=== PATIENT | male | born 1930 | race Caucasian/White ===

== ENCOUNTER 2021-11-19 10:44 | Inpatient (IN) | payer MEDICARE ==
[~2021-11-19] VITALS: Ht 195 cm; Wt 84.9 kg
--- NOTE | 2021-11-19 10:47 | ED General ---
General Stated Complaint: DIZZY History of Present Illness Date Seen by Provider: Nov 19, 2021 Time Seen by Provider: 10:47 Initial Comments 89-year-old male presents with dizziness, weakness that is generalized, dry mouth. Reports that symptoms started yesterday and he just feels really weak. He denies any recent illness. No chest pain, shortness of breath, fever, chills or urinary symptoms are reported. Patient reports that he is having difficulty even getting up and standing up to the generalized weakness. He does feel like he is falling a little bit to the right when he tries to stand up. Patient reports no new medications or medication changes. Allergies and Home Medications Allergies Coded Allergies: No Known Drug Allergies (Unverified , 11/19/21) Patient Home Medication List Home Medication List Reviewed: Yes Review of Systems Review of Systems Constitutional: dizziness, weakness EENTM: no symptoms reported Respiratory: No cough, No short of breath Musculoskeletal: see HPI Skin: no symptoms reported Psychiatric/Neurological: No Symptoms Reported, Weakness Hematologic/Lymphatic: No Symptoms Reported Immunological/Allergic: no symptoms reported Physical Exam Vital Signs Vital Signs - First Documented 11/19/21 11/19/21 10:44 15:23 Temp 37.6 Pulse 134 Resp 17 B/P (MAP) 99/78 (85) Pulse Ox 95 O2 Delivery Room Air Capillary Refill : Height, Weight, BMI Height: '" Weight: lbs. oz. kg; BMI Method: General Appearance: No Apparent Distress, Cachetic, Thin HEENT: PERRL/EOMI Respiratory: Lungs Clear, Normal Breath Sounds Cardiovascular: No Edema, Tachycardia Extremity: Normal Capillary Refill, Other (Generalized weakness) Neurologic/Psychiatric: Alert, Oriented x3, Other (Generalized weakness) Skin: Jaundice (mild) Progress/Results/Core Measures Suspected Sepsis SIRS Temperature: Pulse: Respiratory Rate: Laboratory Tests 11/19/21 10:45: White Blood Count 7.0 Blood Pressure / Mean: Laboratory Tests 11/19/21 10:45: Creatinine 0.96, Platelet Count 118L, Total Bilirubin 5.5H Results/Orders Lab Results Laboratory Tests Test 11/19/21 10:45 11/19/21 11:06 11/19/21 11:33 11/19/21 11:37 Range/Units White Blood Count 7.0 4.3-11.0 10^3/uL Red Blood Count 4.47 4.30-5.52 10^6/uL Hemoglobin 14.1 13.3-17.7 g/dL Hematocrit 39 L 40-54 % Mean Corpuscular Volume 88 80-99 fL Mean Corpuscular Hemoglobin 32 25-34 pg Mean Corpuscular Hemoglobin Concent 36 32-36 g/dL Red Cell Distribution Width 13.2 10.0-14.5 % Platelet Count 118 L 130-400 10^3/uL Mean Platelet Volume 10.3 9.0-12.2 fL Immature Granulocyte % (Auto) 0 % Neutrophils (%) (Auto) 97 H 42-75 % Lymphocytes (%) (Auto) 2 L 12-44 % Monocytes (%) (Auto) 1 0-12 % Eosinophils (%) (Auto) 0 0-10 % Basophils (%) (Auto) 0 0-10 % Neutrophils # (Auto) 6.7 1.8-7.8 X 10^3 Lymphocytes # (Auto) 0.2 L 1.0-4.0 X 10^3 Monocytes # (Auto) 0.1 0.0-1.0 X 10^3 Eosinophils # (Auto) 0.0 0.0-0.3 10^3/uL Basophils # (Auto) 0.0 0.0-0.1 10^3/uL Immature Granulocyte # (Auto) 0.0 0.0-0.1 10^3/uL Neutrophils % (Manual) 96 % Lymphocytes % (Manual) 3 % Monocytes % (Manual) 1 % Percent Immature Platelet Fraction 0.0-7.6 % Sodium Level 133 L 135-145 MMOL/L Potassium Level 3.7 3.6-5.0 MMOL/L Chloride Level 99 98-107 MMOL/L Carbon Dioxide Level 17 L 21-32 MMOL/L Anion Gap 17 H 5-14 MMOL/L Blood Urea Nitrogen 16 7-18 MG/DL Creatinine 0.96 0.60-1.30 MG/DL Estimat Glomerular Filtration Rate 76 BUN/Creatinine Ratio 17 Glucose Level 126 H 70-105 MG/DL Calcium Level 8.9 8.5-10.1 MG/DL Corrected Calcium 9.0 8.5-10.1 MG/DL Magnesium Level 1.6 1.6-2.4 MG/DL Total Bilirubin 5.5 H 0.1-1.0 MG/DL Aspartate Amino Transf (AST/SGOT) 465 H 5-34 U/L Alanine Aminotransferase (ALT/SGPT) 338 H 0-55 U/L Alkaline Phosphatase 648 H 40-136 U/L Troponin I < 0.30 <0.30 NG/ML C-Reactive Protein 3.32 H <0.50 MG/DL Total Protein 6.5 6.4-8.2 GM/DL Albumin 3.9 3.2-4.5 GM/DL Lipase 2479 H 8-78 U/L Urine Color YELLOW Urine Clarity CLEAR Urine pH 6.0 5-9 Urine Specific Pingree 1.025 H 1.016-1.022 Urine Protein NEGATIVE NEGATIVE Urine Glucose (UA) NEGATIVE NEGATIVE Urine Ketones NEGATIVE NEGATIVE Urine Nitrite NEGATIVE NEGATIVE Urine Bilirubin 2+ H NEGATIVE Urine Urobilinogen 1.0 < = 1.0 MG/DL Urine Leukocyte Esterase NEGATIVE NEGATIVE Urine RBC (Auto) TRACE-I H NEGATIVE Urine RBC NONE /HPF Urine WBC NONE /HPF Urine Squamous Epithelial Cells 2-5 /HPF Urine Crystals NONE /LPF Urine Bacteria TRACE /HPF Urine Casts NONE /LPF Urine Mucus SMALL H /LPF Urine Culture Indicated NO Influenza Type A Antigen NEGATIVE NEGATIVE Influenza Type B Antigen POSITIVE H NEGATIVE SARS-CoV-2 RNA (RT-PCR) Not Detected Not Detecte Glucometer 105 70-110 MG/DL My Orders Orders - MERRITT,SRI L DO Cbc With Automated Diff (11/19/21 10:48) Comprehensive Metabolic Panel (11/19/21 10:48) Magnesium (11/19/21 10:48) Ua Culture If Indicated (11/19/21 10:48) Crp Fs (11/19/21 10:48) Troponin I Fs (11/19/21 10:48) Influenza A & B Antigens (11/19/21 10:48) Covid 19 Inhouse Test (11/19/21 10:48) Accucheck Stat ONCE (11/19/21 10:48) Ekg Tracing (11/19/21 10:48) Monitor-Rhythm Ecg Trace Only (11/19/21 10:48) Ct Head Wo (11/19/21 10:48) Ns Iv 1000 Ml (Sodium Chloride 0.9%) (11/19/21 10:48) Chest 1 View Ap/Pa Only (11/19/21 10:48) Manual Differential (11/19/21 10:45) Lipase (11/19/21 11:37) Ct Abdomen/Pelvis W (11/19/21 11:39) Iohexol Injection (Omnipaque 350 Mg/Ml 1 (11/19/21 11:45) Received Contrast (Hold Metformin- Contr (11/19/21 11:45) Sodium Chloride Flush (Catheter Flush Sy (11/19/21 11:45) Ns (Ivpb) (Sodium Chloride 0.9% Ivpb Bag (11/19/21 11:45) Iohexol Injection (Omnipaque 350 Mg/Ml 1 (11/19/21 12:15) Received Contrast (Hold Metformin- Contr (11/19/21 12:15) Metoprolol Tartrate Injection (Lopressor (11/19/21 13:45) Ed Admission (Communication) (11/19/21 13:43) Lactated Ringers (Lr 1000 Ml Iv Solution (11/19/21 14:19) Medications Given in ED Current Medications Medications Dose Ordered Sig/Vandana Route Start Time Stop Time Status Last Admin Dose Admin Iohexol 100 ml ONCE ONCE IV 11/19/21 12:15 11/19/21 12:16 DC 11/19/21 12:07 100 ML Metoprolol Tartrate 5 mg ONCE ONCE IV 11/19/21 13:45 11/19/21 13:46 DC 11/19/21 13:50 5 MG Sodium Chloride 10 ml NEEDED PRN IV 11/19/21 11:45 11/19/21 12:04 10 ML Sodium Chloride 100 ml ONCE ONCE IV 11/19/21 11:45 11/19/21 11:46 DC 11/19/21 12:04 100 ML Vital Signs/I&O 11/19/21 11/19/21 10:44 15:23 Temp 37.6 Pulse 134 101 Resp 17 16 B/P (MAP) 99/78 (85) 129/78 Pulse Ox 95 O2 Delivery Room Air Room Air Capillary Refill : Progress Note : Progress Note Patient's weakness likely combination of influenza B along with an incidental finding of gallstone pancreatitis. Patient to be admitted to Dr. Brown [facility]. I did call and discuss also with Dr. Collier who will consult. Patient stable and transferred to [place] [facility] via EMS ECG Initial ECG Impression Date: Nov 19, 2021 Initial ECG Impression Time: 11:27 Initial ECG Rate: 125 Initial ECG Impression: Nonspecific Changes Comment atrial fib, non specific changes, no acute findings. Diagnostic Imaging Diagonstic Imaging: CT Plain Films/CT/US/NM/MRI: abdomen Comments PROCEDURE: CT abdomen and pelvis with contrast. TECHNIQUE: Multiple contiguous axial images were obtained through the abdomen and pelvis after administration of intravenous contrast. Auto Exposure Controls were utilized during the CT exam to meet ALARA standards for radiation dose reduction. All CT scans use one or more of the following dose optimizing techniques: automated exposure control, MA and/or KvP adjustment based on patient size and exam type or iterative reconstruction. INDICATION: Elevated bilirubin. COMPARISON: I have no previous. FINDINGS: The liver is mildly enlarged at 21 cm cephalocaudal. The gallbladder is distended with multiple large calculi. The gallbladder wall shows some suggestion of mild thickening. While not confirmed, the pattern raises the question of acute cholecystitis but that clinical diagnosis would be in doubt. Gallbladder ultrasound versus a nuclear medicine hepatobiliary scanning may provide additional utility. No radiopaque common duct stone is found. The pancreas and its duct are unremarkable. Spleen and adrenals are negative. The kidneys are unobstructed. There is no ileus or bowel obstruction. There are noninflamed diverticula of the sigmoid colon. There are fatty left greater than right inguinal hernias, noninflamed. The urinary bladder is unremarkable. There is no abdominopelvic mesenteric or retroperitoneal lymphadenopathy. The lung bases and basilar pleura are nonacute. IMPRESSION: 1. Cholelithiasis with mild prominence of the gallbladder and its wall, cholecystitis could not be excluded but that diagnosis could not be confirmed at this study and clinical correlation recommended. As indicated, gallbladder ultrasound may provide additional utility. 2. No intra or extrahepatic bile duct dilatation and no radiopaque choledocholithiases. Nonacute and nonfocal pancreas. 3. Noninflamed diverticulosis, fatty inguinal hernias. No other acute findings. Diagonstic Imaging: CT Plain Films/CT/US/NM/MRI: head Comments CT HEAD WO PROCEDURE: CT head without contrast. TECHNIQUE: Multiple contiguous axial images were obtained through the brain without the use of intravenous contrast. Auto Exposure Controls were utilized during the CT exam to meet ALARA standards for radiation dose reduction. INDICATION: Weakness. COMPARISON: No relevant comparison. FINDINGS: Cerebral cortical volume is unremarkable given age. There is no hydrocephalus. There are intracranial atherosclerotic vascular calcifications, chronic. There are very mild periventricular white matter hypodensities as an expected finding given the age of this patient and the burden of white matter small vessel disease is very slight. No findings of cortical edema. No evidence for elevated pressures. There is no mass or mass effect. There are no findings of hemorrhage. Orbits, sinuses, and calvarium appeared nonacute. IMPRESSION: Very mild senescent changes. No hemorrhage, edema, acute or suspicious abnormalities. Diagonstic Imaging: Xray Plain Films/CT/US/NM/MRI: chest Comments CHEST 1 VIEW AP/PA ONLY HISTORY: Weakness, fever TECHNIQUE: Frontal view the chest COMPARISON: None FINDINGS: Lung volumes are normal. No consolidation is seen. There is no pleural effusion or pneumothorax. The cardiac silhouette is normal in size. There is calcified granuloma in the left lung. IMPRESSION: 1. No acute pulmonary abnormality is seen. Departure Impression Primary Impression: Influenza B Additional Impressions: Cholelithiasis Qualified Codes: K80.20 - Calculus of gallbladder without cholecystitis without obstruction Pancreatitis, gallstone Disposition: 30 STILL A PATIENT Condition: Stable Admissions Decision to Admit Reason: Admit from ER (General) Decision to Admit/Date: Nov 19, 2021 Time/Decision to Admit Time: 13:42 SRI MERRITT DO Nov 19, 2021 10:47
[2021-11-19] MEDS ORDERED: NS IV 1000 ML 1,000 ML IV STA (10:48)
[2021-11-19 10:54] LABS: HEMATOCRIT 39 % (40-54); HEMOGLOBIN 14.1 g/dL (13.3-17.7); MEAN CORPUSCULAR HEMOGLOBIN 32 pg (25-34); MEAN CORPUSCULAR HGB CONC 36 g/dL (32-36); MEAN CORPUSCULAR VOLUME 88 fL (80-99); MEAN PLATELET VOLUME 10.3 fL (9.0-12.2); NEUTROPHILS % (AUTO) 97 % (42-75); PLATELET COUNT 118 10^3/uL (130-400)
[2021-11-19 10:55] LABS: BASOPHILS % (AUTO) 0 % (0-10); EOSINOPHILS % (AUTO) 0 % (0-10); LYMPHOCYTES # (AUTO) 0.2 X 10^3 (1.0-4.0); LYMPHOCYTES % (AUTO) 2 % (12-44); MONOCYTES # (AUTO) 0.1 X 10^3 (0.0-1.0); MONOCYTES % (AUTO) 1 % (0-12); NEUTROPHILS # (AUTO) 6.7 X 10^3 (1.8-7.8)
[2021-11-19 11:11] LABS: CLARITY,URINE CLEAR; COLOR,URINE YELLOW; GLUCOSE, URINE (UA) NEGATIVE (NEGATIVE); KETONES,URINE NEGATIVE (NEGATIVE); LEUKOCYTE ESTERASE ,URINE NEGATIVE (NEGATIVE); NITRITE,URINE NEGATIVE (NEGATIVE); PROTEIN,URINE NEGATIVE (NEGATIVE)
[2021-11-19 11:17] LABS: ALANINE AMINOTRANSFERASE 338 U/L (0-55); ALBUMIN 3.9 GM/DL (3.2-4.5); ALKALINE PHOSPHATASE 648 U/L (40-136); BILIRUBIN,TOTAL 5.5 MG/DL (0.1-1.0); BUN/CREATININE RATIO 17; CALCIUM 8.9 MG/DL (8.5-10.1); CARBON DIOXIDE 17 MMOL/L (21-32); CHLORIDE 99 MMOL/L (98-107); CREATININE SERUM 0.96 MG/DL (0.60-1.30); GFR ESTIMATED 76; GLUCOSE 126 MG/DL (70-105); MAGNESIUM 1.6 MG/DL (1.6-2.4); POTASSIUM 3.7 MMOL/L (3.6-5.0); SODIUM 133 MMOL/L (135-145); TOTAL PROTEIN 6.5 GM/DL (6.4-8.2)
[2021-11-19 11:19] LABS: BACTERIA,URINE TRACE /HPF; BILIRUBIN,URINE 2+ (NEGATIVE)
--- NOTE | 2021-11-19 11:19 | Diagnostic Imaging Report ---
PROCEDURE: CT head without contrast. TECHNIQUE: Multiple contiguous axial images were obtained through the brain without the use of intravenous contrast. Auto Exposure Controls were utilized during the CT exam to meet ALARA standards for radiation dose reduction. INDICATION: Weakness. COMPARISON: No relevant comparison. FINDINGS: Cerebral cortical volume is unremarkable given age. There is no hydrocephalus. There are intracranial atherosclerotic vascular calcifications, chronic. There are very mild periventricular white matter hypodensities as an expected finding given the age of this patient and the burden of white matter small vessel disease is very slight. No findings of cortical edema. No evidence for elevated pressures. There is no mass or mass effect. There are no findings of hemorrhage. Orbits, sinuses, and calvarium appeared nonacute. IMPRESSION: Very mild senescent changes. No hemorrhage, edema, acute or suspicious abnormalities. Dictated by: Dictated on workstation # [id number]
[2021-11-19 11:26] LABS: LYMPHOCYTES % (MANUAL) 3 %; MONOCYTES % (MANUAL) 1 %; NEUTROPHILS % (MANUAL) 96 %
[2021-11-19] MEDS ORDERED: HOLD METFORMIN - RECEIVED CONTRAST 20 ML VIAL IV SCH ×2 (11:45→12:15)
[2021-11-19] MEDS ORDERED: IOHEXOL 350 MG/ML 100 ML (OMNIPAQUE 350) VIAL IV ONE (11:45)
[2021-11-19] MEDS ORDERED: NS 100 ML (IVPB) BAG IV ONE (11:45)
--- NOTE | 2021-11-19 11:49 | Diagnostic Imaging Report ---
HISTORY: Weakness, fever TECHNIQUE: Frontal view the chest COMPARISON: None FINDINGS: Lung volumes are normal. No consolidation is seen. There is no pleural effusion or pneumothorax. The cardiac silhouette is normal in size. There is calcified granuloma in the left lung. IMPRESSION: 1. No acute pulmonary abnormality is seen. Dictated by: Dictated on workstation # [id number]
[2021-11-19] MEDS: CATHETER FLUSH 10 ML SYR IV PRN (12:04)
[2021-11-19] MEDS ORDERED: IOHEXOL 350 MG/ML 150 ML (OMNIPAQUE 350) VIAL IV ONE (12:15)
--- NOTE | 2021-11-19 12:32 | Diagnostic Imaging Report ---
PROCEDURE: CT abdomen and pelvis with contrast. TECHNIQUE: Multiple contiguous axial images were obtained through the abdomen and pelvis after administration of intravenous contrast. Auto Exposure Controls were utilized during the CT exam to meet ALARA standards for radiation dose reduction. All CT scans use one or more of the following dose optimizing techniques: automated exposure control, MA and/or KvP adjustment based on patient size and exam type or iterative reconstruction. INDICATION: Elevated bilirubin. COMPARISON: I have no previous. FINDINGS: The liver is mildly enlarged at 21 cm cephalocaudal. The gallbladder is distended with multiple large calculi. The gallbladder wall shows some suggestion of mild thickening. While not confirmed, the pattern raises the question of acute cholecystitis but that clinical diagnosis would be in doubt. Gallbladder ultrasound versus a nuclear medicine hepatobiliary scanning may provide additional utility. No radiopaque common duct stone is found. The pancreas and its duct are unremarkable. Spleen and adrenals are negative. The kidneys are unobstructed. There is no ileus or bowel obstruction. There are noninflamed diverticula of the sigmoid colon. There are fatty left greater than right inguinal hernias, noninflamed. The urinary bladder is unremarkable. There is no abdominopelvic mesenteric or retroperitoneal lymphadenopathy. The lung bases and basilar pleura are nonacute. IMPRESSION: 1. Cholelithiasis with mild prominence of the gallbladder and its wall, cholecystitis could not be excluded but that diagnosis could not be confirmed at this study and clinical correlation recommended. As indicated, gallbladder ultrasound may provide additional utility. 2. No intra or extrahepatic bile duct dilatation and no radiopaque choledocholithiases. Nonacute and nonfocal pancreas. 3. Noninflamed diverticulosis, fatty inguinal hernias. No other acute findings. Dictated by: Dictated on workstation # [id number]
[2021-11-19] MEDS ORDERED: meTOprolol 5 MG/5 ML (LOPRESSOR) VIAL IV ONE (13:45)
[2021-11-19] MEDS ORDERED: LACTATED RINGERS 1,000 ML IV STA (14:19)
[2021-11-19] MEDS ORDERED: BISACODYL 10 MG SUPP (DULCOLAX) PR PRN (16:00)
[2021-11-19] MEDS ORDERED: morphine INJ 4 MG/ML 1 ML (VIAL/SYRINGE) IV PRN (16:00)
[2021-11-19] MEDS ORDERED: ONDANSETRON 4 MG (ZOFRAN) ORAL DISSOLVE TAB PO PRN (16:00)
[2021-11-19] MEDS ORDERED: ACETAMINOPHEN 325 MG TABLET PO PRN (16:00)
[2021-11-19] MEDS ORDERED: ANTACID SUSP 30 ML UDC (MYLANTA) PO PRN (16:00)
[2021-11-19] MEDS ORDERED: diphenhydrAMINE 25 MG TAB (BENADRYL) PO PRN (16:00)
[2021-11-19] MEDS ORDERED: diphenhydrAMINE 50 MG/ML INJ (BENADRYL) IVP PRN (16:00)
[2021-11-19 16:02] VITALS: BP 119/90
[2021-11-19] MEDS: NS IV 1000 ML 1,000 ML IV SCH (16:14)
[2021-11-19] MEDS ORDERED: PIPERACILLIN SODIUM/TAZOBACTAM 4.5 GM in NS (IVPB) 100 ML IV ONE (16:30)
[2021-11-19] MEDS: ENOXAPARIN 40 MG/0.4 ML (LOVENOX) SYR SC SCH (17:17)
[2021-11-19] MEDS: inSUlin ASPART (NovoLOG) 1 UNIT/0.01 ML (CHARGE PER UNIT) SC SCH ×2 (17:24→21:01)
--- NOTE | 2021-11-19 17:59 | CONSULTATION REPORT ---
DATE OF SERVICE: 11/19/2021 ATTENDING PRIMARY CARE PHYSICIAN: Dr. Bustamante. ADMITTING PHYSICIAN: Dr. Brown. HISTORY OF PRESENT ILLNESS: The patient is an 89-year-old male, who presented to [facility] with a generalized weakness as well as a dry mouth. He states that for the past two days, he has felt weak and also has had some exertional shortness of breath. He was found to be influenza B positive. Upon further examination, the patient was found to have skin jaundice as well as scleral icterus. Laboratory work was done, which did show elevation of liver function enzymes including total bilirubin of 5.5. Further evaluation with a CT scan did show cholelithiasis; however, there was no ductal dilatation as well as no pancreatic masses. He does not report any abdominal pain. PAST MEDICAL HISTORY: Hypertension, hypercholesterolemia, degenerative joint disease, and generalized weakness. PAST SURGICAL HISTORY: Unknown. ALLERGIES: No known drug allergies. MEDICATIONS: See medication reconciliation. SOCIAL HISTORY: Negative smoke and negative alcohol. FAMILY HISTORY: Noncontributory. REVIEW OF SYSTEMS: This is a thin-appearing elderly male, who is a week; however, does answer the majority of questions appropriately. He is not experiencing any shortness of breath or difficulty in breathing. No chest pain, palpitations, diaphoresis. He does have some exertional shortness of breath and generalized weakness. No nausea or vomiting; however, has had a loss of appetite. No diarrhea, constipation, no red blood per rectum, no dark tarry stools. No fever, chills, no recent inadvertent weight loss. All other review of systems negative. PHYSICAL EXAMINATION: VITAL SIGNS: Temperature 36.9, blood pressure 119/90, pulse 108, respirations 20, and pulse ox 94% on room air. CHEST: A few scattered rales and rhonchi bilaterally. HEART: Regular, no murmurs. EXTREMITIES: No lower extremity edema and negative Homans sign. HEENT: No scleral icterus. NECK: No cervical lymphadenopathy. ABDOMEN: Soft and nondistended. There is mild discomfort at McBurney's point upon deep palpation. No rebounding. SKIN: Warm and dry. LABORATORY DATA: WBC 7.9, hemoglobin 14.1, hematocrit 49, platelets 118, BUN 16, and creatinine 0.96. Total bilirubin 5.5, AST 465, ALT 338, alkaline phosphatase 648, and lipase 2479. ASSESSMENT AND PLAN: An 89-year-old male with choledocholithiasis and early gallstone pancreatitis and also generalized weakness and influenza B positive. We will continue to monitor his progress and continue to treat his respiratory status and also monitor serial laboratory work. If he continues to improve and does not have any respiratory issues and is cleared by internal medicine as well as possibly cardiology and his liver function enzymes become closer to normal, he may be a candidate for laparoscopic cholecystectomy. We will continue to monitor his progress. Job ID: [id number] DocumentID: [id number] Dictated Date: 11/19/2021 16:34:25 Material Spreader Date: 11/19/2021 17:58:48 Dictated By: CHESTER DE LOS SANTOS MD MTDD
[2021-11-19 20:00] VITALS: BP 107/54
[2021-11-19] MEDS: DOCUSATE SODIUM 100 MG (COLACE) CAP PO SCH (20:53)
[2021-11-19] MEDS: OSELTAMIVIR 75 MG (TAMIFLU) CAPSULE PO SCH (20:54)
[2021-11-19] MEDS: PIPERACILLIN SODIUM/TAZOBACTAM 4.5 GM in NS (IVPB) 100 ML IV SCH (22:13)
[2021-11-20] VITALS (8 sets, daily range): BP systolic 106–128; BP diastolic 54–78
[2021-11-20] MEDS: NS IV 1000 ML 1,000 ML IV SCH ×2 (03:24→13:53)
[2021-11-20 04:47] LABS: BASOPHILS % (AUTO) 0 % (0-10); EOSINOPHILS # (AUTO) 0.1 10^3/uL (0.0-0.3); EOSINOPHILS % (AUTO) 1 % (0-10); HEMATOCRIT 36 % (40-54); HEMOGLOBIN 12.4 g/dL (13.3-17.7); LYMPHOCYTES % (AUTO) 5 % (12-44); MEAN CORPUSCULAR HEMOGLOBIN 31 pg (25-34); MEAN CORPUSCULAR HGB CONC 34 g/dL (32-36); MEAN CORPUSCULAR VOLUME 92 fL (80-99); MEAN PLATELET VOLUME 11.4 fL (9.0-12.2); MONOCYTES # (AUTO) 0.9 10^3/uL (0.0-1.0); MONOCYTES % (AUTO) 5 % (0-12); NEUTROPHILS # (AUTO) 16.5 10^3/uL (1.8-7.8); NEUTROPHILS % (AUTO) 88 % (42-75); PLATELET COUNT 91 10^3/uL (130-400); WHITE BLOOD COUNT 18.8 10^3/uL (4.3-11.0)
[2021-11-20 05:03] LABS: ALBUMIN 3.3 GM/DL (3.2-4.5); POTASSIUM 3.5 MMOL/L (3.6-5.0)
[2021-11-20 05:04] LABS: CALCIUM 8.3 MG/DL (8.5-10.1)
[2021-11-20 05:05] LABS: TOTAL PROTEIN 5.6 GM/DL (6.4-8.2)
[2021-11-20 05:07] LABS: BILIRUBIN,TOTAL 6.1 MG/DL (0.1-1.0)
[2021-11-20 05:09] LABS: CREATININE SERUM 1.24 MG/DL (0.60-1.30)
[2021-11-20] MEDS: PIPERACILLIN SODIUM/TAZOBACTAM 4.5 GM in NS (IVPB) 100 ML IV SCH ×3 (06:16→23:41)
[2021-11-20] MEDS: inSUlin ASPART (NovoLOG) 1 UNIT/0.01 ML (CHARGE PER UNIT) SC SCH (06:16)
--- NOTE | 2021-11-20 07:43 | History & Physical-Hospitalist ---
History of Present Illness HPI/Chief Complaint Chief complaint: Severe weakness with influenza B and gallstones History of present illness: This is an 89-year-old white male who is very active and just Sunday was building a chain link fence who presented to [facility] with generalized weakness. He was found to have influenza B. He was noted to be jaundiced and labs revealed elevated total bilirubin and CT scan showed multiple gallstones. Antibiotics were initiated with Zosyn and IV fluids and supportive care. Dr. DE LOS SANTOS has been consulted and hopes to be able to remove the gallbladder but ERCP may be required prior to the cholecystectomy. Source: patient Exam Limitations: no limitations Date Seen 11/20/21 Time Seen by a Provider: 10:00 Attending Physician Tammie Brown Pankaj K MD Referring Physician Date of Admission Nov 19, 2021 at 15:42 Home Medications & Allergies Home Medications Reviewed patient Home Medication Reconciliation performed by pharmacy medication reconciliations paint technician and/or nursing. Patients Allergies have been reviewed. Allergies Allergies Coded Allergies No Known Drug Allergies (Unverified11/19/21) Past [id number] Hx Patient Social History Marrital Status: Employed/Student: retired Tobacco Use?: No Smoking Status: Never a Smoker Smokeless Tobacco Frequency: Never a User Use of E-Cig and/or Vaping dev: No Use of E-Cig and/or Vaping Jackson: Never a User Substance use?: No Alcohol Use?: No Pt feels they are or have been: No Immunizations Up To Date First/Initial COVID19 Vaccinat: FEBRUARY 18 Second COVID19 Vaccination Rod: MARCH 21 Tetanus Booster (TDap): Unknown Hepatitis A: No Hepatitis B: No Current Status Advance Directives: No Communicates: Verbally Primary Language: Zimbabwean Preferred Spoken Language: Zimbabwean Is interpretation needed?: No Sensory deficits: Vision impairment Implanted or Applied Medical D: None Past Medical History High Cholesterol, Hypertension Arthritis Review of Systems Constitutional: see HPI EENTM: no symptoms reported Respiratory: no symptoms reported Cardiovascular: no symptoms reported Gastrointestinal: loss of appetite Genitourinary: no symptoms reported Musculoskeletal: no symptoms reported Skin: no symptoms reported Psychiatric/Neurological: No Symptoms Reported All Other Systems Reviewed Negative Unless Noted: Yes Physical Exam Physical Exam Vital Signs Vital Signs - First Documented 11/19/21 11/19/21 10:44 15:23 Temp 37.6 Pulse 134 Resp 17 B/P (MAP) 99/78 (85) Pulse Ox 95 O2 Delivery Room Air Capillary Refill : Less Than 3 Seconds Height, Weight, BMI Height: '" Weight: lbs. oz. kg; 19.56 BMI Method: General Appearance: No Apparent Distress, Chronically ill Eyes: Right Eye Normal Inspection, Right Eye PERRL HEENT: PERRL/EOMI, Normal ENT Inspection, Pharynx Normal, Moist Mucous Membranes Neck: Full Range of Motion, Normal Inspection, Non Tender Respiratory: Chest Non Tender, Lungs Clear, Normal Breath Sounds, No Accessory Muscle Use, No Respiratory Distress Cardiovascular: Regular Rate, Rhythm, No Edema, No Gallop, No JVD, No Murmur, Normal Peripheral Pulses Gastrointestinal: Normal Bowel Sounds, No Organomegaly, No Pulsatile Mass, Non Tender, Soft Back: Normal Inspection, No CVA Tenderness, No Vertebral Tenderness Extremity: Normal Capillary Refill, Normal Inspection, Normal Range of Motion, Non Tender, No Calf Tenderness, No Pedal Edema Neurologic/Psychiatric: Alert, Oriented x3, No Motor/Sensory Deficits, Normal Mood/Affect Skin: Normal Color, Warm/Dry Lymphatic: No Adenopathy Results Results/Procedures Labs Laboratory Tests 11/19/21 10:45 11/20/21 03:51 Patient resulted labs reviewed. Assessment/Plan Admission Diagnosis Assessment: Influenza B Severe weakness Gallstone induced pancreatitis Cholecystitis placed on Zosyn and vancomycin (vancomycin added due to current influenza status in case this is staph aureus cholecystitis) Jaundice Sclerae icterus Hypertension GERD Plan: Supportive fluid IV antibiotics Dr. DE LOS SANTOS consult Tamiflu Admission Status: Inpatient Order (span 2 midnights) Reason for Inpatient Admission: hepatitis Diagnosis/Problems Diagnosis/Problems (1) Pancreatitis, gallstone Status: Acute (2) Cholelithiasis Status: Acute Qualifiers: Cholelithiasis location: gallbladder Cholecystitis presence: without cholecystitis Biliary obstruction: without biliary obstruction Qualified Codes: K80.20 - Calculus of gallbladder without cholecystitis without obstruction (3) Influenza B TAMMIE BROWN DO Nov 20, 2021 07:43
--- NOTE | 2021-11-20 09:55 | Progress Note ---
Subjective Date Seen by a Provider: Nov 20, 2021 Time Seen by a Provider: 09:00 Subjective/Events-last exam clinically well. no issues. LFT's still elevated. no abd pain. Focused Exam Lactate Level 11/20/21 08:00: Lactic Acid Level 2.06*H Lactic Acid Level Laboratory Tests Test 11/20/21 08:00 Lactic Acid Level 2.06 MMOL/L (0.50-2.00) *H Objective Exam Vital Signs Date Time Temp Pulse Resp B/P (MAP) Pulse Ox O2 Delivery O2 Flow Rate FiO2 11/20/21 08:52 35.4 58 18 106/61 (76) 97 Room Air 11/20/21 08:41 57 11/20/21 08:41 94 Room Air 11/20/21 07:10 36.0 61 17 123/78 (93) 98 Room Air 11/20/21 05:00 37.0 53 22 112/54 (73) 97 Room Air 11/20/21 00:00 36.9 56 19 115/59 (77) 97 Room Air 11/19/21 20:00 94 Room Air 11/19/21 20:00 36.2 73 19 107/54 (71) 95 Room Air 11/19/21 17:58 Room Air 11/19/21 16:02 36.9 108 20 119/90 (100) 94 Room Air 11/19/21 15:23 101 16 129/78 95 Room Air 11/19/21 10:44 37.6 134 17 99/78 (85) Room Air I & O 11/20/21 06:59 Intake Total 1300 ml Balance 1300 ml Capillary Refill : Less Than 3 Seconds General Appearance: No Apparent Distress HEENT: PERRL/EOMI Neck: Full Range of Motion Respiratory: Chest Non Tender, Lungs Clear, Normal Breath Sounds Cardiovascular: Regular Rate, Rhythm Gastrointestinal: normal bowel sounds, non tender, soft Extremity: Normal Capillary Refill Neurologic/Psychiatric: Alert, Oriented x3 Skin: Jaundice Lymphatic: No Adenopathy Results Lab Laboratory Tests 11/19/21 10:45: White Blood Count 7.0, Red Blood Count 4.47, Hemoglobin 14.1, Hematocrit 39L, Mean Corpuscular Volume 88, Mean Corpuscular Hemoglobin 32, Mean Corpuscular Hemoglobin Concent 36, Red Cell Distribution Width 13.2, Platelet Count 118L, Mean Platelet Volume 10.3, Immature Granulocyte % (Auto) 0, Neutrophils (%) (Auto) 97H, Lymphocytes (%) (Auto) 2L, Monocytes (%) (Auto) 1, Eosinophils (%) (Auto) 0, Basophils (%) (Auto) 0, Neutrophils # (Auto) 6.7, Lymphocytes # (Auto) 0.2L, Monocytes # (Auto) 0.1, Eosinophils # (Auto) 0.0, Basophils # (Auto) 0.0, Immature Granulocyte # (Auto) 0.0, Neutrophils % (Manual) 96, Lymphocytes % (Manual) 3, Monocytes % (Manual) 1, Percent Immature Platelet Fraction , Sodium Level 133L, Potassium Level 3.7, Chloride Level 99, Carbon Dioxide Level 17L, Anion Gap 17H, Blood Urea Nitrogen 16, Creatinine 0.96, Estimat Glomerular Filtration Rate 76, BUN/Creatinine Ratio 17, Glucose Level 126H, Calcium Level 8.9, Corrected Calcium 9.0, Magnesium Level 1.6, Total Bilirubin 5.5H, Aspartate Amino Transf (AST/SGOT) 465H, Alanine Aminotransferase (ALT/SGPT) 338H, Alkaline Phosphatase 648H, Troponin I < 0.30, C-Reactive Protein 3.32H, Total Protein 6.5, Albumin 3.9, Lipase 2479H 11/19/21 11:06: Urine Color YELLOW, Urine Clarity CLEAR, Urine pH 6.0, Urine Specific [place] 1.025H, Urine Protein NEGATIVE, Urine Glucose (UA) NEGATIVE, Urine Ketones NEGATIVE, Urine Nitrite NEGATIVE, Urine Bilirubin 2+H, Urine Urobilinogen 1.0, Urine Leukocyte Esterase NEGATIVE, Urine RBC (Auto) TRACE-IH, Urine RBC NONE, Urine WBC NONE, Urine Squamous Epithelial Cells 2-5, Urine Crystals NONE, Urine Bacteria TRACE, Urine Casts NONE, Urine Mucus SMALLH, Urine Culture Indicated NO 11/19/21 11:33: Influenza Type A Antigen NEGATIVE, Influenza Type B Antigen POSITIVEH, SARS-CoV-2 RNA (RT-PCR) Not Detected 11/19/21 11:37: Glucometer 105 11/19/21 17:13: Glucometer 95 11/19/21 20:52: Glucometer 171H 11/20/21 03:51: White Blood Count 18.8H, Red Blood Count 3.96L, Hemoglobin 12.4L, Hematocrit 36L , Mean Corpuscular Volume 92, Mean Corpuscular Hemoglobin 31, Mean Corpuscular Hemoglobin Concent 34, Red Cell Distribution Width 13.2, Platelet Count 91L, Mean Platelet Volume 11.4, Immature Granulocyte % (Auto) 2, Neutrophils (%) (Auto) 88H, Lymphocytes (%) (Auto) 5L, Monocytes (%) (Auto) 5, Eosinophils (%) (Auto) 1, Basophils (%) (Auto) 0, Neutrophils # (Auto) 16.5H, Lymphocytes # (Auto) 1.0, Monocytes # (Auto) 0.9, Eosinophils # (Auto) 0.1, Basophils # (Auto) 0.0, Immature Granulocyte # (Auto) 0.3H, Sodium Level 133L, Potassium Level 3.5L , Chloride Level 103, Carbon Dioxide Level 16L, Anion Gap 14, Blood Urea Nitrogen 23H, Creatinine 1.24, Estimat Glomerular Filtration Rate 56, BUN/Creatinine Ratio 19, Glucose Level 143H, Calcium Level 8.3L, Corrected Calcium 8.9, Total Bilirubin 6.1H, Aspartate Amino Transf (AST/SGOT) 299H, Alanine Aminotransferase (ALT/SGPT) 289H, Alkaline Phosphatase 436H, Total Protein 5.6L, Albumin 3.3, Lipase 290H, Procalcitonin 22.78H 11/20/21 08:00: Lactic Acid Level 2.06*H Assessment/Plan Assessment/Plan Assess & Plan/Chief Complaint choledocholithiasis with influenza B. monitor LFT's and ron/lip. cont clears. abx for ascending cholangitis prophylaxis. CHESTER DE LOS SANTOS MD Nov 20, 2021 09:55
[2021-11-20] MEDS: DOCUSATE SODIUM 100 MG (COLACE) CAP PO SCH ×2 (10:09→20:16)
[2021-11-20] MEDS: OSELTAMIVIR 75 MG (TAMIFLU) CAPSULE PO SCH ×2 (10:09→20:56)
[2021-11-20] MEDS ORDERED: NS IV 1000 ML 1,000 ML IV SCH (11:45)
[2021-11-20] MEDS ORDERED: VANCOMYCIN INJECTION 1,000 MG in NS (IVPB) 250 ML IV SCH (12:15)
[2021-11-20] MEDS ORDERED: VANCOMYCIN 1500 MG/NS 500 ML IVPB IV NR ×2 (13:00)
[2021-11-20] MEDS: ENOXAPARIN 40 MG/0.4 ML (LOVENOX) SYR SC SCH (15:46)
[2021-11-20] MEDS: VANCOMYCIN 750 MG/NS 250 ML IVPB IV SCH ×2 (20:55)
[2021-11-21] MEDS: NS IV 1000 ML 1,000 ML IV SCH ×3 (04:03→23:35)
[2021-11-21 04:49] VITALS: BP 128/76
[2021-11-21] MEDS: PIPERACILLIN SODIUM/TAZOBACTAM 4.5 GM in NS (IVPB) 100 ML IV SCH ×3 (06:15→23:51)
[2021-11-21 06:43] LABS: BASOPHILS % (AUTO) 0 % (0-10); HEMATOCRIT 32 % (40-54); HEMOGLOBIN 11.2 g/dL (13.3-17.7); MEAN CORPUSCULAR HEMOGLOBIN 31 pg (25-34); MEAN CORPUSCULAR HGB CONC 35 g/dL (32-36); MEAN CORPUSCULAR VOLUME 90 fL (80-99); NEUTROPHILS % (AUTO) 85 % (42-75)
[2021-11-21 06:45] LABS: EOSINOPHILS # (AUTO) 0.2 10^3/uL (0.0-0.3); EOSINOPHILS % (AUTO) 1 % (0-10); LYMPHOCYTES # (AUTO) 0.7 10^3/uL (1.0-4.0); LYMPHOCYTES % (AUTO) 6 % (12-44); MONOCYTES # (AUTO) 0.7 10^3/uL (0.0-1.0); MONOCYTES % (AUTO) 6 % (0-12); NEUTROPHILS # (AUTO) 9.3 10^3/uL (1.8-7.8); PLATELET COUNT 95 10^3/uL (130-400); WHITE BLOOD COUNT 10.9 10^3/uL (4.3-11.0)
[2021-11-21 06:54] LABS: ALBUMIN 2.8 GM/DL (3.2-4.5); POTASSIUM 3.1 MMOL/L (3.6-5.0)
[2021-11-21 06:57] LABS: TOTAL PROTEIN 4.9 GM/DL (6.4-8.2)
[2021-11-21 06:59] LABS: BILIRUBIN,TOTAL 2.4 MG/DL (0.1-1.0)
[2021-11-21 07:01] LABS: CREATININE SERUM 0.79 MG/DL (0.60-1.30)
[2021-11-21 08:37] VITALS: BP 110/53
[2021-11-21] MEDS: VANCOMYCIN 750 MG/NS 250 ML IVPB IV SCH ×4 (09:34→20:47)
[2021-11-21] MEDS: DOCUSATE SODIUM 100 MG (COLACE) CAP PO SCH ×2 (09:34→20:46)
[2021-11-21] MEDS: OSELTAMIVIR 75 MG (TAMIFLU) CAPSULE PO SCH ×2 (09:34→20:46)
[2021-11-21] MEDS ORDERED: GEMF600T88 PO (10:54)
[2021-11-21] MEDS ORDERED: FINA5TAB6 PO (10:54)
[2021-11-21] MEDS ORDERED: CALC-823 PO (10:54)
[2021-11-21] MEDS ORDERED: MULT-974 PO (10:55)
[2021-11-21] MEDS ORDERED: OMG1KC PO (10:56)
[2021-11-21] MEDS ORDERED: ACET-2267 PO (10:56)
--- NOTE | 2021-11-21 11:14 | Progress Note - Hospitalist ---
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 He was found to have influenza B. He was noted to be jaundiced and labs revealed elevated total bilirubin and CT scan showed multiple gallstones. Antibiotics were initiated with Zosyn and IV fluids and supportive care. Dr. DE LOS SANTOS has been consulted and hopes to be able to remove the gallbladder but ERCP may be required prior to the cholecystectomy. Subjective/Events-last exam Patient resting comfortably in bed this morning. Conversant. Wanting to get the gallstone flushed out "like I've flushed out a few radiators in my day." Denies any pain. Awaiting recommendation for general surgery regarding cholecystectomy timing. Review of Systems General: No Chills, No Night Sweats HEENT: No Head Aches, No Visual Changes, No Eye Pain Pulmonary: No Dyspnea, No Cough Cardiovascular: No: Chest Pain, Palpitations, Orthopnea Gastrointestinal: No: Nausea, Vomiting, Abdominal Pain, Diarrhea, Constipation Genitourinary: No Dysuria, No Frequency Musculoskeletal: No: leg pain, foot pain Neurological: No: Weakness, Numbness Focused Exam Sepsis Stage: Sepsis Possible Source: GI Tract/Intra-Abdominal Lactate Level 11/20/21 08:00: Lactic Acid Level 2.06*H 11/20/21 10:05: Lactic Acid Level 2.28*H 11/20/21 12:15: Lactic Acid Level 1.91 Respiratory: Chest Non Tender, Lungs Clear, Normal Breath Sounds, No Accessory Muscle Use, No Respiratory Distress Cardiovascular: Regular Rate, Rhythm, No Edema, No Gallop, No JVD, No Murmur, Normal Peripheral Pulses Capillary Refill: Less Than 3 Seconds Skin: normal color, warm/dry Objective Exam Vital Signs Vital Signs Date Time Temp Pulse Resp B/P (MAP) Pulse Ox O2 Delivery O2 Flow Rate FiO2 11/21/21 08:37 36.8 60 20 110/53 (72) 94 Room Air Capillary Refill : Less Than 3 Seconds General Appearance: No Apparent Distress, WD/WN HEENT: PERRL/EOMI, Pharynx Normal, Moist Mucous Membranes Neck: Full Range of Motion, Normal Inspection, Non Tender, Supple Respiratory: Chest Non Tender, Lungs Clear, Normal Breath Sounds, No Accessory Muscle Use, No Respiratory Distress Cardiovascular: Regular Rate, Rhythm, No Edema, No Gallop, No JVD, No Murmur, Normal Peripheral Pulses Gastrointestinal: Normal Bowel Sounds, Non Tender, Soft Rectal: Deferred Back: Normal Inspection Extremity: Normal Capillary Refill, Normal Inspection, Normal Range of Motion, Non Tender, No Calf Tenderness Neurologic/Psychiatric: Alert, Oriented x3, No Motor/Sensory Deficits, Normal Mood/Affect, rn access II-XII Norm as Tested Skin: Normal Color, Warm/Dry Lymphatic: No Adenopathy Results/Procedures Lab Laboratory Tests 11/21/21 06:06 Patient resulted labs reviewed. Imaging: Reviewed Imaging Report Assessment/Plan Assessment and Plan Assess & Plan/Chief Complaint Assessment: Influenza B Severe Weakness - improving Gallstone Pancreatitis - improving Choledocholithiasis - improving Jaundice - improving Scleral Icterus - resolved Hypertension GERD Plan: Oseltamivir General Surgery consulted, appreciate recs Probable upcoming cholecystectomy Zosyn & Vanc (covering for potential Staph 11/02 Influenza) DC Telemetry PT/OT IV K+ and Mg2+ replacement Supportive care (IVF @ 90mL/hr) Diagnosis/Problems Diagnosis/Problems (1) Influenza B Status: Acute (2) Pancreatitis, gallstone Status: Acute (3) Cholelithiasis Status: Acute Qualifiers: Qualified Codes: K80.20 - Calculus of gallbladder without cholecystitis without obstruction (4) Jaundice Status: Acute (5) Hypertension Status: Chronic (6) GERD (gastroesophageal reflux disease) Status: Chronic (7) Scleral icterus Status: Resolved TAMMIE BROWN DO 11/22/21 0523: Subjective Subjective/Events-last exam Pt is doing a lot better Total bilirubin is down to 2.4 Liver enzymes are improved White blood cell count is now normal Zosyn and Vancomycin maintained Review of Systems General: Fatigue, Malaise Objective Exam General Appearance: No Apparent Distress, WD/WN, Chronically ill Respiratory: Lungs Clear, Normal Breath Sounds Cardiovascular: Regular Rate, Rhythm Assessment/Plan Assessment and Plan Assess & Plan/Chief Complaint IV fluids IV antibiotics Monitor labs Supervisory-Addendum Brief Verification & Attestation Participated in pt care: history, MDM, physical Personally performed: exam, history, MDM, supervision of care Care discussed with: Medical Student Procedures: n/a Results interpretation: Verified all documentation Verification and Attestation of Medical Student E/M Service A medical student performed and documented this service in my presence. I reviewed and verified all information documented by the medical student and made modifications to such information, when appropriate. I personally performed the physical exam and medical decision making. Tammie Brown, Nov 22, 2021,05:23 KARMA BEYER Nov 21, 2021 11:14 TAMMIE BROWN DO Nov 22, 2021 05:23
[2021-11-21 12:25] VITALS: BP 108/62
[2021-11-21] MEDS: POTASSIUM CL 10MEQ/50ML IVPB 50 ML IV SCH ×2 (13:17→13:18)
--- NOTE | 2021-11-21 13:18 | Occupational Therapy Eval ---
OT Evaluation-General/PLF Medical Diagnosis Admission Date Nov 19, 2021 at 15:42 Medical Diagnosis: Influenza B, pancreatitis, gallstones. Onset Date: Nov 19, 2021 Therapy Diagnosis Therapy Diagnosis: n/a Precautions Precautions/Isolations: Fall Prevention, Standard Precautions Referral Physician: Stephanie Referral Reason: Evaluation/Treatment Medical History Current History ED with general weakness, found to have Influenza B, jaundice, CT showed gall stones Social History Home: Single Level Current Living Status: Friend ADL-Prior Level of Function SCALE: Activities may be completed with or without assistive devices. 1-Sbcgpzhwjf-jyggwgr completes the activity by him/herself with no assistance from a helper. 5-Set-up or Clean-up Assistance-helper sets up or cleans up; patient completes activity. [place] assists only prior to or following the activity. 4-Supervision or Touching Assistance-helper provides verbal cues and/or touchi ng/steadying and/or contact guard assistance as patient completes activity. Assistance may be provided throughout the activity or intermittently. 3-Partial/Moderate Assistance-helper does LESS THAN HALF the effort. [place] lifts, holds or supports trunk or limbs, but provides less than half the effort. 2-Substantial/Maximal Assistance-helper does MORE THAN HALF the effort. [place] lifts or holds trunk or limbs and provides more than half the effort. 1-Roazycyvm-flsgpz does ALL the effort. Patient does none of the effort to complete the activity. Or, the assistance of 2 or more helpers is required for the patient to complete the activity. If activity was not attempted, code reason: 7-Patient Refused. 9-Not Applicable-not attempted and the patient did not perform the activity before the current illness, exacerbation or injury. 10-Not Attempted due to Environmental Limitations-(lack of equipment, weather restraints, etc.). 88-Not Attempted due to Medical Conditions or Safety Concerns. ADL PLOF Comments Pt reports IND with all ADLs and functional mobility at PLOF, no AD/AE. Pt is typically very active, and builds fence frequently. Self Care: Independent Functional Cognition: Independent OT Current Status Subjective Pt in bed, agreeable to OT tx. Pt feels like he is at his PLOF and independent with ADLs Mental Status/Objective Patient Orientation: Person, Place, Situation Attachments: IV Current Upper Extremity ROM WFL Upper Extremity Strength WFL ADL-Treatment Eating (QC): 6 (Per pt report.) On/Off Footwear (QC): 6 Other Treatments Pt laying in bed, transferred supine to sit EOB independently. Pt performed functional mobility into the bathroom. Pt completed toileting independently, able to perform hygiene and clothing management, pt then stood at sink to wash his hands independently. Pt stood at sink and informed OT about his PLOF, then returned to EOB. Post tx, pt in bed, call light in reach and all needs met. Education OT Patient Education: Correct positioning, Energy conservation, Modified ADL techniques, Progress toward Goal/Update tx plan, Purpose of tx/functional activities, Rehab process Teaching Recipient: Patient Teaching Methods: Discussion Response to Teaching: Verbalize Understanding OT Residential Goals Workers' Compensation Magistrate Goals 1=Demonstrate adherence to instructed precautions during ADL tasks. 2=Patient will verbalize/demonstrate understanding of assistive devices/modifications for ADL. 3=Patient will improve strength/tolerance for activity to enable patient to perform ADL's. OT Education/Plan Problem List/Assessment Assessment: No Skilled OT Needs ID'd No skilled OT services indicated at this time, as pt is independent with ADLs and functional mobility and at PLOF. D/C from OT. Discharge Recommendations Plan/Recommendations: Discharge/Goals Met Treatment Plan/Plan of Care Patient would benefit from OT for education, treatment and training to promote independence in ADL's, mobility, safety and/or upper extremity function for ADL's. Plan of Care: ADL Retraining, Functional Mobility Treatment Duration: Nov 21, 2021 Frequency: 1 time per week (eval only) Estimated Hrs Per Day: .25 hour per day Agreement: Yes Rehab Potential: Good Time/GCodes Start Time: 12:50 Stop Time: 13:04 Total Time Billed (hr/min): 14 Billed Treatment Time 1, BALDEV BABCOCK OT Nov 21, 2021 13:18
--- NOTE | 2021-11-21 13:49 | Physical Therapy Evaluation ---
PT Evaluation-General Medical Diagnosis Admission Date Nov 19, 2021 at 15:42 Medical Diagnosis: Influenza B, pancreatitis, gallstones. Onset Date: Nov 19, 2021 Therapy Diagnosis Therapy Diagnosis: weakness, debility Precautions Precautions/Isolations: Fall Prevention, Standard Precautions Referral Physician: Stephanie Reason for Referral: Evaluation/Treatment Medical History Current History Patient presented to ED with complaints of SOA and weakness. Patient was diagnosed with Influenza B Reviewed History: Yes Social History Home: Single Level Current Living Status: Alone Entry Into Home: Ramp Prior Prior Level of Function SCALE: Activities may be completed with or without assistive devices. 0-Hnndnrgpsi-zkioyxr completes the activity by him/herself with no assistance from a helper. 5-Set-up or Clean-up Assistance-helper sets up or cleans up; patient completes activity. [place] assists only prior to or following the activity. 4-Supervision or Touching Assistance-helper provides verbal cues and/or michael giovanni/steadying and/or contact guard assistance as patient completes activity. Assistance may be provided throughout the activity or intermittently. 3-Partial/Moderate Assistance-helper does LESS THAN HALF the effort. [place] lifts, holds or supports trunk or limbs, but provides less than half the effort. 2-Substantial/Maximal Assistance-helper does MORE THAN HALF the effort. [place] lifts or holds trunk or limbs and provides more than half the effort. 9-Pzofmerqt-yszyfa does ALL the effort. Patient does none of the effort to complete the activity. Or, the assistance of 2 or more helpers is required for the patient to complete the activity. If activity was not attempted, code reason: 7-Patient Refused. 9-Not Applicable-not attempted and the patient did not perform the activity before the current illness, exacerbation or injury. 10-Not Attempted due to Environmental Limitations-(lack of equipment, weather restraints, etc.). 88-Not Attempted due to Medical Conditions or Safety Concerns. Bed Mobility: 6 Transfers (B,C,W/C): 6 Gait: 6 Indoor Mobility (Ambulation): Independent Prior Devices Use: None PT Evaluation-Current Subjective Patient presented sitting up in bed and agrees to participate in physical therapy. Objective Patient Orientation: Person, Place, Time, Situation Attachments: IV ROM/Strength ROM Lower Extremities WFL Strength Lower Extremities 4+/5 strength bilaterally grossly Integumentary/Posture Bowel Incontinence: No Bladder Incontinence: No Sensory Vision: Functional Hearing: Functional Transfers Lying to Sitting/Side of Bed(Q: 6 Sit to Stand (QC): 6 Patient is independent for all transfers. Gait Does the Patient Walk?: Yes Mode of Locomotion: Walk Anticipated Mode of Locomotion: Walk Walk 10 feet (QC): 6 Walk 50 ft with 2 Turns(QC): 6 Walk 150 ft (QC): 6 Distance: 150' Gait Assistive Device: None Comments/Gait Description Patient is independent for ambulation without AD. Balance Sitting Static: Normal Sitting Dynamic: Normal Standing Static: Normal Standing Dynamic: Fair Assessment/Needs Patient performed transfers and ambulated around his room independently. Patient reported that he has never used an AD and believes he doesn't need one now either. Patient is being d/c from therapy services due to independence with ambulation and transfers. Rehab Potential: Good PT Plan Treatment/Plan Treatment Plan: Discontinue PT, goals met Treatment Duration: Nov 21, 2021 Frequency: 1 time per week Estimated Hrs Per Day: .25 hour per day Time/GCodes Time In: 1315 Time Out: 1330 Total Billed Treatment Time: 15 Total Billed Treatment 1 Visit Seferino 15 min CARMEN ROMAN PT Nov 21, 2021 13:49
[2021-11-21 15:20] VITALS: BP_SYST 11; BP_SYST 111; BP_DIAS 65
[2021-11-21] MEDS: ENOXAPARIN 40 MG/0.4 ML (LOVENOX) SYR SC SCH (15:33)
--- NOTE | 2021-11-21 15:42 | Progress Note ---
Subjective Date Seen by a Provider: Nov 21, 2021 Time Seen by a Provider: 15:00 Subjective/Events-last exam doing well. no complaints. no abd pain. no fever/chills. norris clears. Focused Exam Lactate Level 11/20/21 08:00: Lactic Acid Level 2.06*H 11/20/21 10:05: Lactic Acid Level 2.28*H 11/20/21 12:15: Lactic Acid Level 1.91 Objective Exam Vital Signs Date Time Temp Pulse Resp B/P (MAP) Pulse Ox O2 Delivery O2 Flow Rate FiO2 11/21/21 15:20 36.0 64 16 111/65 (80) 97 Room Air 11/21/21 12:37 66 11/21/21 12:25 36.7 94 20 108/62 (77) 95 Room Air 11/21/21 08:37 36.8 60 20 110/53 (72) 94 Room Air 11/21/21 08:00 Room Air 11/21/21 07:17 53 11/21/21 04:49 36.1 58 18 128/76 (93) 95 Room Air 11/21/21 01:00 58 11/20/21 23:42 36.1 70 18 128/76 (93) 95 Room Air 11/20/21 20:55 Room Air 11/20/21 20:00 35.4 68 18 121/69 (86) 95 Room Air 11/20/21 19:00 66 11/20/21 16:00 36.0 65 18 110/55 (73) 95 Room Air I & O 11/21/21 07:00 Intake Total 1480 ml Output Total 800 ml Balance 680 ml Capillary Refill : Less Than 3 Seconds General Appearance: No Apparent Distress HEENT: PERRL/EOMI Neck: Full Range of Motion Respiratory: Chest Non Tender, Lungs Clear, Normal Breath Sounds Cardiovascular: Regular Rate, Rhythm Gastrointestinal: normal bowel sounds, non tender, soft Extremity: Normal Capillary Refill Neurologic/Psychiatric: Alert, Oriented x3 Skin: Normal Color Lymphatic: No Adenopathy Results Lab Laboratory Tests 11/21/21 06:06: White Blood Count 10.9, Red Blood Count 3.59L, Hemoglobin 11.2L, Hematocrit 32L, Mean Corpuscular Volume 90, Mean Corpuscular Hemoglobin 31, Mean Corpuscular Hemoglobin Concent 35, Red Cell Distribution Width 13.3, Platelet Count 95L, Mean Platelet Volume 12.0, Immature Granulocyte % (Auto) 1, Neutrophils (%) (Auto) 85H, Lymphocytes (%) (Auto) 6L, Monocytes (%) (Auto) 6, Eosinophils (%) (Auto) 1, Basophils (%) (Auto) 0, Neutrophils # (Auto) 9.3H, Lymphocytes # (Auto) 0.7L, Monocytes # (Auto) 0.7, Eosinophils # (Auto) 0.2, Basophils # (Auto) 0.0, Immature Granulocyte # (Auto) 0.1, Percent Immature Platelet Fraction 9.0H, Sodium Level 134L, Potassium Level 3.1L, Chloride Level 106, Carbon Dioxide Level 19L, Anion Gap 9, Blood Urea Nitrogen 16, Creatinine 0.79, Estimat Glomerular Filtration Rate 85, BUN/Creatinine Ratio 20, Glucose Level 94, Calcium Level 8.0L, Corrected Calcium 9.0, Magnesium Level 1.8, Total Bilirubin 2.4H, Aspartate Amino Transf (AST/SGOT) 127H, Alanine Aminotransferase (ALT/SGPT) 184H, Alkaline Phosphatase 342H, Total Protein 4.9L, Albumin 2.8L, Lipase 125H Assessment/Plan Assessment/Plan Assess & Plan/Chief Complaint choledocholithiasis with influenza B. monitor LFT's and ron/lip. cont clears. abx for ascending cholangitis prophylaxis. LFT's trending down. possible laparoscopic cholecystectomy on this admission and continues to be asx from CHESTER Serrato MD Nov 21, 2021 15:42
[2021-11-21] MEDS ORDERED: TROUGH ORDER-PHARMACY XX NR (20:00)
[2021-11-21 23:34] VITALS: BP 117/64
[2021-11-22] MEDS: PIPERACILLIN SODIUM/TAZOBACTAM 4.5 GM in NS (IVPB) 100 ML IV SCH ×3 (05:51→23:28)
[2021-11-22] MEDS: NS IV 1000 ML 1,000 ML IV SCH ×2 (05:51→21:49)
[2021-11-22 06:25] LABS: LYMPHOCYTES # (AUTO) 0.7 10^3/uL (1.0-4.0); LYMPHOCYTES % (AUTO) 9 % (12-44); MEAN CORPUSCULAR HEMOGLOBIN 32 pg (25-34); MEAN CORPUSCULAR VOLUME 90 fL (80-99); NEUTROPHILS % (AUTO) 80 % (42-75)
[2021-11-22 06:27] LABS: BASOPHILS % (AUTO) 0 % (0-10); EOSINOPHILS # (AUTO) 0.2 10^3/uL (0.0-0.3); EOSINOPHILS % (AUTO) 3 % (0-10); HEMATOCRIT 31 % (40-54); HEMOGLOBIN 10.8 g/dL (13.3-17.7); MEAN CORPUSCULAR HGB CONC 35 g/dL (32-36); MEAN PLATELET VOLUME 11.8 fL (9.0-12.2); MONOCYTES # (AUTO) 0.5 10^3/uL (0.0-1.0); MONOCYTES % (AUTO) 7 % (0-12); PLATELET COUNT 107 10^3/uL (130-400); WHITE BLOOD COUNT 7.5 10^3/uL (4.3-11.0)
[2021-11-22 06:40] LABS: ALBUMIN 2.7 GM/DL (3.2-4.5)
[2021-11-22 06:41] LABS: POTASSIUM 3.3 MMOL/L (3.6-5.0)
[2021-11-22 06:42] LABS: CALCIUM 7.9 MG/DL (8.5-10.1)
[2021-11-22 06:43] LABS: TOTAL PROTEIN 4.8 GM/DL (6.4-8.2)
[2021-11-22 06:45] LABS: BILIRUBIN,TOTAL 1.8 MG/DL (0.1-1.0)
[2021-11-22 06:47] LABS: CREATININE SERUM 0.77 MG/DL (0.60-1.30)
[2021-11-22 08:00] VITALS: BP 115/71
[2021-11-22] MEDS: OSELTAMIVIR 75 MG (TAMIFLU) CAPSULE PO SCH ×2 (09:04→20:16)
[2021-11-22] MEDS: VANCOMYCIN 750 MG/NS 250 ML IVPB IV SCH ×4 (09:04→20:16)
[2021-11-22] MEDS: DOCUSATE SODIUM 100 MG (COLACE) CAP PO SCH ×2 (09:17→20:16)
[2021-11-22] MEDS ORDERED: MAGNESIUM 1 GM/100 ML IVPB 100 ML IV ONE (10:00)
[2021-11-22] MEDS: POTASSIUM CL 10MEQ/50ML IVPB 50 ML IV SCH ×2 (10:36→13:01)
--- NOTE | 2021-11-22 11:41 | Progress Note - Hospitalist ---
KARMA BEYER 11/22/21 1141: Subjective HPI/CC On Admission Date Seen by Provider: Nov 22, 2021 Time Seen by Provider: 09:00 Chief complaint: Severe weakness with influenza B and gallstones History of present illness: This is an 89-year-old white male who is very active and just Sunday was building a [place] fence who presented to [facility] with generalized weakness. He was found to have influenza B. He was noted to be jaundiced and labs revealed elevated total bilirubin and CT scan showed multiple gallstones. Antibiotics were initiated with Zosyn and IV fluids and supportive care. Dr. COLLIER has been consulted and hopes to be able to remove the gallbladder but ERCP may be required prior to the cholecystectomy. Subjective/Events-last exam Patient sitting at edge of bed, conversant this morning. He has no new complaints. Awaiting cholecystectomy timing from Dr. Collier. Nursing reports some telemetry readings of possible atrial fibrillation. Will obtain EKG and Echo with cardiology consult for evaluation. Review of Systems General: No Chills, No Night Sweats HEENT: No Head Aches, No Visual Changes, No Eye Pain Pulmonary: No Dyspnea, No Cough Cardiovascular: No: Chest Pain, Palpitations, Orthopnea Gastrointestinal: No: Nausea, Vomiting, Abdominal Pain, Diarrhea, Constipation Genitourinary: No Dysuria, No Frequency Musculoskeletal: No: leg pain, foot pain Neurological: No: Weakness, Numbness Focused Exam Lactate Level 11/20/21 08:00: Lactic Acid Level 2.06*H 11/20/21 10:05: Lactic Acid Level 2.28*H 11/20/21 12:15: Lactic Acid Level 1.91 Respiratory: Chest Non Tender, Lungs Clear, Normal Breath Sounds, No Accessory Muscle Use, No Respiratory Distress Cardiovascular: Regular Rate, Rhythm, No Edema, No Gallop, No JVD, No Murmur, Normal Peripheral Pulses Capillary Refill: Less Than 3 Seconds Skin: normal color, warm/dry Objective Exam Vital Signs Vital Signs Date Time Temp Pulse Resp B/P (MAP) Pulse Ox O2 Delivery O2 Flow Rate FiO2 11/22/21 08:00 Room Air 11/22/21 08:00 35.9 71 18 115/71 (86) 95 Capillary Refill : Less Than 3 Seconds General Appearance: No Apparent Distress, WD/WN HEENT: PERRL/EOMI, Pharynx Normal, Moist Mucous Membranes Neck: Full Range of Motion, Normal Inspection, Non Tender, Supple Respiratory: Chest Non Tender, Lungs Clear, Normal Breath Sounds, No Accessory Muscle Use, No Respiratory Distress Cardiovascular: Regular Rate, Rhythm, No Edema, No Gallop, No JVD, No Murmur, Normal Peripheral Pulses Gastrointestinal: Normal Bowel Sounds, Non Tender, Soft Rectal: Deferred Back: Normal Inspection Extremity: Normal Capillary Refill, Normal Inspection, Normal Range of Motion, Non Tender, No Calf Tenderness, No Pedal Edema Neurologic/Psychiatric: Alert, Oriented x3, No Motor/Sensory Deficits, Normal Mood/Affect, technical marketing consultant II-XII Norm as Tested Skin: Normal Color, Warm/Dry Lymphatic: No Adenopathy Results/Procedures Lab Laboratory Tests 11/22/21 05:57 Patient resulted labs reviewed. Imaging: Reviewed Imaging Report Assessment/Plan Assessment and Plan Assess & Plan/Chief Complaint Assessment: Influenza B Severe Weakness - improving Gallstone Pancreatitis - improving Choledocholithiasis - improving Jaundice - resolved Scleral Icterus - resolved Hypertension GERD Anemia - likely dilutional Thrombocytopenia Hypokalemia Plan: Oseltamivir D#3 General Surgery consulted, appreciate recs Probable upcoming cholecystectomy Zosyn & Vanc D#3 (covering for potential Staph 2/2 Influenza) Consult cardiology EKG & Echo for possible AFib IV K+ and Mg2+ replacement Supportive care (IVF @ 90mL/hr) PT/OT Diagnosis/Problems Diagnosis/Problems (1) Influenza B Status: Acute (2) Pancreatitis, gallstone Status: Acute (3) Cholelithiasis Status: Acute Qualifiers: Qualified Codes: K80.20 - Calculus of gallbladder without cholecystitis wi thout obstruction (4) Anemia (5) Thrombocytopenia (6) Hypokalemia (7) Hypertension Status: Chronic (8) GERD (gastroesophageal reflux disease) Status: Chronic (9) Jaundice Status: Resolved (10) Scleral icterus Status: Resolved TAMMIE HEMPHILL DO 11/23/21 0531: Subjective Subjective/Events-last exam Pt is doing a lot better Total bilirubin was 1.8 and liver enzymes much improved Cardiology will be consulted for new onset afib that is rate controlled Echocardiogram and EKG ordered Review of Systems General: Fatigue, Malaise Objective Exam General Appearance: No Apparent Distress, WD/WN, Chronically ill Respiratory: Lungs Clear, Normal Breath Sounds Cardiovascular: Regular Rate, Rhythm Neurologic/Psychiatric: Alert, Oriented x3, No Motor/Sensory Deficits, Normal Mood/Affect Assessment/Plan Assessment and Plan Assess & Plan/Chief Complaint Assessment: New onset atrial fibrillation consulting cardiology Plan: Echo Cardiology consult Supervisory-Addendum Brief Verification & Attestation Participated in pt care: history, MDM, physical Personally performed: exam, history, MDM, supervision of care Care discussed with: Medical Student Procedures: n/a Results interpretation: Verified all documentation Verification and Attestation of Medical Student E/M Service A medical student performed and documented this service in my presence. I reviewed and verified all information documented by the medical student and made modifications to such information, when appropriate. I personally performed the physical exam and medical decision making. Tammie Hemphill, Nov 23, 2021,05:26 KARMA BEYER Nov 22, 2021 11:41 TAMMIE HEMPHILL DO Nov 23, 2021 05:31
--- NOTE | 2021-11-22 12:47 | Consultation-Cardiology ---
HPI-Cardiology Cardiology Consultation Date of Consultation 11/22/21 Date of Admission Time Seen by Provider: 12:41 Indication: Cardiac arrhythmia HPI 89-year-old gentleman fairly active with no past medical history reporting that he had irregular heart rhythm since he was young. Admitted for generalized weakness and loss of energy, noted to have elevated liver enzymes and multiple gallstones diagnosed with influenza B. During hospital stay patient was noted to have irregular heartbeat and suspicion of underlying atrial fibrillation. I was called for consultation. He denied any chest pain or shortness of breath. No palpitation. No syncope. Home Medications & Allergies Allergies: Coded Allergies: No Known Drug Allergies (Unverified , 11/19/21) Home Medication List Reviewed: Yes [id number] Hx Patient Social History Marital Status: Employed/Student: retired Smoking Status: Never a Smoker Have you traveled recently?: No Alcohol Use?: No Review of Systems-General Review of Systems Constitutional: see HPI, malaise EENTM: no symptoms reported Respiratory: see HPI; No cough, No dyspnea on exertion, No hemoptysis, No orthopnea, No phlegm, No short of breath, No stridor, No wheezing, No other Cardiovascular: see HPI; No chest pain, No edema, No Hx of Intervention, No palpitations, No syncope, No vascular heart diseas, No other Gastrointestinal: loss of appetite Genitourinary: no symptoms reported Musculoskeletal: no symptoms reported Skin: no symptoms reported Psychiatric/Neurological: No Symptoms Reported All Other Systems Reviewed Negative Unless Noted: Yes Reviewed Test Results Reviewed Test Results Lab Laboratory Tests Test 11/21/21 19:54 11/22/21 05:57 Range/Units Vancomycin Level Trough 13.1 10.0-20.0 UG/ML White Blood Count 7.5 4.3-11.0 10^3/uL Red Blood Count 3.42 L 4.30-5.52 10^6/uL Hemoglobin 10.8 L 13.3-17.7 g/dL Hematocrit 31 L 40-54 % Mean Corpuscular Volume 90 80-99 fL Mean Corpuscular Hemoglobin 32 25-34 pg Mean Corpuscular Hemoglobin Concent 35 32-36 g/dL Red Cell Distribution Width 13.4 10.0-14.5 % Platelet Count 107 L 130-400 10^3/uL Mean Platelet Volume 11.8 9.0-12.2 fL Immature Granulocyte % (Auto) 1 % Neutrophils (%) (Auto) 80 H 42-75 % Lymphocytes (%) (Auto) 9 L 12-44 % Monocytes (%) (Auto) 7 0-12 % Eosinophils (%) (Auto) 3 0-10 % Basophils (%) (Auto) 0 0-10 % Neutrophils # (Auto) 6.0 1.8-7.8 10^3/uL Lymphocytes # (Auto) 0.7 L 1.0-4.0 10^3/uL Monocytes # (Auto) 0.5 0.0-1.0 10^3/uL Eosinophils # (Auto) 0.2 0.0-0.3 10^3/uL Basophils # (Auto) 0.0 0.0-0.1 10^3/uL Immature Granulocyte # (Auto) 0.0 0.0-0.1 10^3/uL Percent Immature Platelet Fraction 7.9 H 0.0-7.6 % Sodium Level 135 135-145 MMOL/L Potassium Level 3.3 L 3.6-5.0 MMOL/L Chloride Level 108 H 98-107 MMOL/L Carbon Dioxide Level 19 L 21-32 MMOL/L Anion Gap 8 5-14 MMOL/L Blood Urea Nitrogen 12 7-18 MG/DL Creatinine 0.77 0.60-1.30 MG/DL Estimat Glomerular Filtration Rate 86 BUN/Creatinine Ratio 16 Glucose Level 100 70-105 MG/DL Calcium Level 7.9 L 8.5-10.1 MG/DL Corrected Calcium 8.9 8.5-10.1 MG/DL Total Bilirubin 1.8 H 0.1-1.0 MG/DL Aspartate Amino Transf (AST/SGOT) 65 H 5-34 U/L Alanine Aminotransferase (ALT/SGPT) 130 H 0-55 U/L Alkaline Phosphatase 320 H 40-136 U/L Total Protein 4.8 L 6.4-8.2 GM/DL Albumin 2.7 L 3.2-4.5 GM/DL Lipase 103 H 8-78 U/L Physical Exam Physical Exam Vital Signs Vital Signs - First Documented 11/19/21 11/19/21 10:44 15:23 Temp 37.6 Pulse 134 Resp 17 B/P (MAP) 99/78 (85) Pulse Ox 95 O2 Delivery Room Air Capillary Refill : Less Than 3 Seconds Height, Weight, BMI Height: '" Weight: lbs. oz. kg; 19.56 BMI Method: General Appearance: No Apparent Distress, WD/WN Eyes: Right Eye Normal Inspection, Right Eye PERRL HEENT: PERRL/EOMI, Pharynx Normal, Moist Mucous Membranes Neck: Full Range of Motion, Normal Inspection, Non Tender, Supple Respiratory: Chest Non Tender, Lungs Clear, Normal Breath Sounds, No Accessory Muscle Use, No Respiratory Distress Cardiovascular: No Edema, No Gallop, No JVD, No Murmur, Normal Peripheral Pulses, Other (Irregular rhythm) Gastrointestinal: Normal Bowel Sounds, Non Tender, Soft Rectal: Deferred Back: Normal Inspection Extremity: Normal Capillary Refill, Normal Inspection, Normal Range of Motion, Non Tender, No Calf Tenderness, No Pedal Edema Neurologic/Psychiatric: Alert, Oriented x3, No Motor/Sensory Deficits, Normal Mood/Affect, food general manager II-XII Norm as Tested Skin: Normal Color, Warm/Dry Lymphatic: No Adenopathy A/P-Cardiology Admission Diagnosis Paroxysmal atrial tachycardia Premature ventricular contractions Cholelithiasis Influenza B Assessment/Plan Irregular rhythm with frequent ventricular premature contractions, occasional atrial premature contractions, occasional short runs of paroxysmal atrial tachycardia. Suspicion of atrial fibrillation, had 1 telemetric strip suggestive of atrial fibrillation otherwise patient had artifact in sinus rhythm with first-degree AV block and frequent PVCs and few short runs of PAT's. Reporting that he had history of irregular heartbeat. Plan to evaluate 2D echo and will start on low- dose beta-blockers and evaluate tolerance and response Influenza B, generalized weakness, managed by medical team Cholelithiasis, elevated liver enzymes, possible cholecystectomy managed by medical team. Hypokalemia, will give 20 mEq of KCl today, monitor electrolytes Jaundice. ARIANA FALL MD Nov 22, 2021 12:47
[2021-11-22] MEDS ORDERED: KCL 20 MEQ TAB (K-DUR) PO NR (13:00)
--- NOTE | 2021-11-22 13:53 | Progress Note ---
Subjective Date Seen by a Provider: Nov 22, 2021 Time Seen by a Provider: 13:00 Subjective/Events-last exam doing well. no complaints. LFT's coming down. Focused Exam Lactate Level 11/20/21 08:00: Lactic Acid Level 2.06*H 11/20/21 10:05: Lactic Acid Level 2.28*H 11/20/21 12:15: Lactic Acid Level 1.91 Objective Exam Vital Signs Date Time Temp Pulse Resp B/P (MAP) Pulse Ox O2 Delivery O2 Flow Rate FiO2 11/22/21 12:17 70 11/22/21 08:00 Room Air 11/22/21 08:00 35.9 71 18 115/71 (86) 95 Room Air 11/21/21 23:34 36.4 71 16 117/64 (81) 96 Room Air 11/21/21 20:59 93 Room Air 11/21/21 15:20 36.0 64 16 111/65 (80) 97 Room Air I & O 11/22/21 06:59 Intake Total 4080 ml Output Total 1775 ml Balance 2305 ml Capillary Refill : Less Than 3 Seconds General Appearance: No Apparent Distress HEENT: PERRL/EOMI Neck: Full Range of Motion Respiratory: Chest Non Tender, Lungs Clear, Normal Breath Sounds Cardiovascular: Regular Rate, Rhythm Gastrointestinal: normal bowel sounds, non tender, soft Extremity: Normal Capillary Refill Neurologic/Psychiatric: Alert, Oriented x3 Skin: Normal Color Lymphatic: No Adenopathy Results Lab Laboratory Tests 11/21/21 19:54: Vancomycin Level Trough 13.1 11/22/21 05:57: White Blood Count 7.5, Red Blood Count 3.42L, Hemoglobin 10.8L, Hematocrit 31L, Mean Corpuscular Volume 90, Mean Corpuscular Hemoglobin 32, Mean Corpuscular Hemoglobin Concent 35, Red Cell Distribution Width 13.4, Platelet Count 107L, Mean Platelet Volume 11.8, Immature Granulocyte % (Auto) 1, Neutrophils (%) (Auto) 80H, Lymphocytes (%) (Auto) 9L, Monocytes (%) (Auto) 7, Eosinophils (%) (Auto) 3, Basophils (%) (Auto) 0, Neutrophils # (Auto) 6.0, Lymphocytes # (Auto) 0.7L, Monocytes # (Auto) 0.5, Eosinophils # (Auto) 0.2, Basophils # (Auto) 0.0, Immature Granulocyte # (Auto) 0.0, Percent Immature Platelet Fraction 7.9H, Sodium Level 135, Potassium Level 3.3L, Chloride Level 108H, Carbon Dioxide Level 19L, Anion Gap 8, Blood Urea Nitrogen 12, Creatinine 0.77, Estimat Glomerular Filtration Rate 86, BUN/Creatinine Ratio 16, Glucose Level 100, Calcium Level 7.9L, Corrected Calcium 8.9, Total Bilirubin 1.8H, Aspartate Amino Transf (AST/SGOT) 65H, Alanine Aminotransferase (ALT/SGPT) 130H, Alkaline Phosphatase 320H, Total Protein 4.8L, Albumin 2.7L, Lipase 103H Assessment/Plan Assessment/Plan Assess & Plan/Chief Complaint choledocholithiasis with influenza B. monitor LFT's and ron/lip. cont clears. abx for ascending cholangitis prophylaxis. LFT's trending down. possible laparoscopic cholecystectomy on this admission and continues to be asx from flu. will likely plan for lap opal on sun(11/23) CHESTER DE LOS SANTOS MD Nov 22, 2021 13:53
[2021-11-22 16:00] VITALS: BP 124/70
[2021-11-22] MEDS: ENOXAPARIN 40 MG/0.4 ML (LOVENOX) SYR SC SCH (16:43)
--- NOTE | 2021-11-22 19:12 | Progress Note-Pre Operative ---
Pre-Operative Progress Note H&P Reviewed The H&P was reviewed, patient examined and no changes noted. Date Seen by Provider: Nov 22, 2021 Time Seen by Provider: 18:00 Date H&P Reviewed: Nov 22, 2021 Time H&P Reviewed: 18:00 Pre-Operative Diagnosis: cholelithiasis and choledocholithiasis CHESTER DE LOS SANTOS MD Nov 22, 2021 19:12
[2021-11-23] VITALS (13 sets, daily range): BP systolic 133–171; BP diastolic 71–84
[2021-11-23 05:54] LABS: BASOPHILS % (AUTO) 1 % (0-10); EOSINOPHILS # (AUTO) 0.3 10^3/uL (0.0-0.3); EOSINOPHILS % (AUTO) 5 % (0-10); HEMATOCRIT 32 % (40-54); HEMOGLOBIN 10.9 g/dL (13.3-17.7); LYMPHOCYTES # (AUTO) 0.7 10^3/uL (1.0-4.0); LYMPHOCYTES % (AUTO) 14 % (12-44); MEAN CORPUSCULAR HEMOGLOBIN 31 pg (25-34); MEAN CORPUSCULAR HGB CONC 34 g/dL (32-36); MEAN CORPUSCULAR VOLUME 91 fL (80-99); MEAN PLATELET VOLUME 11.2 fL (9.0-12.2); MONOCYTES # (AUTO) 0.5 10^3/uL (0.0-1.0); MONOCYTES % (AUTO) 10 % (0-12); NEUTROPHILS # (AUTO) 3.6 10^3/uL (1.8-7.8); NEUTROPHILS % (AUTO) 70 % (42-75); PLATELET COUNT 123 10^3/uL (130-400); WHITE BLOOD COUNT 5.1 10^3/uL (4.3-11.0)
[2021-11-23 06:09] LABS: ALBUMIN 2.7 GM/DL (3.2-4.5); POTASSIUM 3.9 MMOL/L (3.6-5.0)
[2021-11-23 06:13] LABS: BILIRUBIN,TOTAL 1.3 MG/DL (0.1-1.0)
[2021-11-23 06:15] LABS: CREATININE SERUM 0.75 MG/DL (0.60-1.30)
[2021-11-23] MEDS: PIPERACILLIN SODIUM/TAZOBACTAM 4.5 GM in NS (IVPB) 100 ML IV SCH ×3 (06:23→23:22)
[2021-11-23] MEDS: DOCUSATE SODIUM 100 MG (COLACE) CAP PO SCH ×2 (07:53→19:32)
[2021-11-23] MEDS: NS IV 1000 ML 1,000 ML IV SCH ×2 (08:11→20:03)
[2021-11-23] MEDS: VANCOMYCIN 750 MG/NS 250 ML IVPB IV SCH ×2 (08:13)
[2021-11-23] MEDS: OSELTAMIVIR 75 MG (TAMIFLU) CAPSULE PO SCH ×2 (08:15→19:32)
[2021-11-23] MEDS ORDERED: ONDANSETRON 4 MG/2 ML (SDV) Z0FRAN ONE (10:18)
[2021-11-23] MEDS ORDERED: fentaNYL INJ 100 MCG/2 ML AMP ONE (10:18)
[2021-11-23] MEDS ORDERED: SEVOFLURANE (ULTANE) 15 ML INHAL SOLN ONE ×2 (10:18→15:40)
[2021-11-23] MEDS ORDERED: LIDOCAINE PF 2% 5 ML (XYLOCAINE) VIAL ONE (10:18)
[2021-11-23] MEDS ORDERED: proPOfol 200 MG/20 ML (DIPRIVAN) VIAL IV ONE (10:18)
[2021-11-23] MEDS ORDERED: ROCURONIUM 10 MG/ML 5 ML SYRINGE IV ONE (10:18)
--- NOTE | 2021-11-23 11:45 | Progress Note - Hospitalist ---
KARMA BEYER 11/23/21 1145: Subjective HPI/CC On Admission Date Seen by Provider: Nov 23, 2021 Time Seen by Provider: 10:00 Chief complaint: Severe weakness with influenza B and gallstones History of present illness: This is an 89-year-old white male who is very active and just Sunday was building a chain link fence who presented to [facility] with generalized weakness. He was found to have influenza B. He was noted to be jaundiced and labs revealed elevated total bilirubin and CT scan showed multiple gallstones. Antibiotics were initiated with Zosyn and IV fluids and supportive care. Dr. COLLIER has been consulted and hopes to be able to remove the gallbladder but ERCP may be required prior to the cholecystectomy. Subjective/Events-last exam Patient resting in chair this morning. Pleasant and conversational. No new complaints. Excited to have cholecystectomy this afternoon and get back out to finishing his chain-linked fence. Denies chest pain, palpitations, shortness of breath, abdominal pain, nausea, vomiting, diarrhea, and constipation. HOSPITAL COURSE: Yogesh Smith is an 89-year-old male who is very active and overall healthy who presented to the [place] [facility] on 11/19/21 with generalized weakness. He was found to have Influenza B. He was noted to be jaundiced and labs revealed elevated total bilirubin. A follow-up CT scan revealed multiple gallstones. Antibiotics (Zosyn & Vanc) were initiated. The patient received Tamiflu for treatment of Influenza B. Dr. Collier was consulted. After 4 days to allow liver enzymes to decrease as well as treat any potential ascending cholangitis, Dr. Collier was able to complete a laproscopic cholecystectomy. The patient tolerated the procedure well without any immediate complications. During hospitalization, the patient's telemetry was noted to show signs of atrial fibrillation. Dr. Wyatt was consulted. He found the patient to have paroxysmal atrial tachycardia and premature ventricular contractions and started him on Metoprolol 25mg PO daily. He will continue taking this as an outpatient. He will complete treatment with Tamiflu for Influenza B, follow-up with his PCP in 1 week, in addition to following up with cardiology as an outpatient. Review of Systems General: No Chills, No Night Sweats HEENT: No Head Aches, No Visual Changes, No Eye Pain Pulmonary: No Dyspnea, No Cough Cardiovascular: No: Chest Pain, Palpitations, Orthopnea Gastrointestinal: No: Nausea, Vomiting, Abdominal Pain, Diarrhea, Constipation Genitourinary: No Dysuria, No Frequency Musculoskeletal: No: leg pain, foot pain Neurological: No: Weakness, Numbness Focused Exam Lactate Level 11/20/21 12:15: Lactic Acid Level 1.91 Respiratory: Chest Non Tender, Lungs Clear, Normal Breath Sounds, No Accessory Muscle Use, No Respiratory Distress Cardiovascular: Regular Rate, Rhythm, No Edema, No Gallop, No JVD, No Murmur, Normal Peripheral Pulses Capillary Refill: Less Than 3 Seconds Skin: normal color, warm/dry Objective Exam Vital Signs Vital Signs Date Time Temp Pulse Resp B/P (MAP) Pulse Ox O2 Delivery O2 Flow Rate FiO2 11/23/21 07:46 36.3 63 22 151/72 (98) 95 Room Air Capillary Refill : Less Than 3 Seconds General Appearance: No Apparent Distress, WD/WN HEENT: PERRL/EOMI, Pharynx Normal, Moist Mucous Membranes Neck: Full Range of Motion, Normal Inspection, Non Tender, Supple Respiratory: Chest Non Tender, Lungs Clear, Normal Breath Sounds, No Accessory Muscle Use, No Respiratory Distress Cardiovascular: Regular Rate, Rhythm, No Edema, No Gallop, No JVD, No Murmur, Normal Peripheral Pulses Gastrointestinal: Normal Bowel Sounds, Non Tender, Soft Rectal: Deferred Back: Normal Inspection Extremity: Normal Capillary Refill, Normal Inspection, Normal Range of Motion, Non Tender, No Calf Tenderness Neurologic/Psychiatric: Alert, Oriented x3, No Motor/Sensory Deficits, Normal Mood/Affect, vascular sonographer II-XII Norm as Tested Skin: Normal Color, Warm/Dry Lymphatic: No Adenopathy Results/Procedures Lab Laboratory Tests 11/23/21 05:38 Patient resulted labs reviewed. Imaging: Reviewed Imaging Report Assessment/Plan Assessment and Plan Assess & Plan/Chief Complaint Assessment: Influenza B Severe Weakness - improving Gallstone Pancreatitis - improving Choledocholithiasis - improving Jaundice - resolved Scleral Icterus - resolved Hypertension GERD Anemia - likely dilutional Thrombocytopenia Hypokalemia Paroxysmal Atrial Tachycardia Premature Ventricular Contractions Plan: Oseltamivir D#4 General Surgery consulted, appreciate recs Cholecystectomy this afternoon Zosyn & Vanc D#4 (covering for potential Staph 2/2 Influenza) Cardiology consulted, appreciate recs Metoprolol 25mg PO daily for PAT and PVC Supportive care (IVF @ 90mL/hr) PT/OT Diagnosis/Problems Diagnosis/Problems (1) Influenza B Status: Acute (2) Pancreatitis, gallstone Status: Acute (3) Cholelithiasis Status: Acute Qualifiers: Qualified Codes: K80.20 - Calculus of gallbladder without cholecystitis without obstruction (4) Paroxysmal atrial tachycardia Status: Acute (5) Premature ventricular contractions Status: Acute (6) Anemia (7) Thrombocytopenia (8) Hypokalemia Status: Acute (9) Hypertension Status: Chronic (10) GERD (gastroesophageal reflux disease) Status: Chronic (11) Jaundice Status: Resolved (12) Scleral icterus Status: Resolved TAMMIE HEMPHILL DO 11/24/21 0550: Subjective Subjective/Events-last exam Pt is doing well today Going to have a cholecystectomy today at [address] Collier No atrial fibrillation noted on telemetry EKG and echocardiogram were reviewed by Dr. Wyatt Review of Systems General: Fatigue Objective Exam General Appearance: No Apparent Distress, WD/WN Respiratory: Lungs Clear, Normal Breath Sounds Cardiovascular: Regular Rate, Rhythm Neurologic/Psychiatric: Alert, Oriented x3, No Motor/Sensory Deficits, Normal Mood/Affect Assessment/Plan Assessment and Plan Assess & Plan/Chief Complaint Cholecystectomy today since benefits outweigh medical risks Supervisory-Addendum Brief Verification & Attestation Participated in pt care: history, MDM, physical Personally performed: exam, history, MDM, supervision of care Care discussed with: Medical Student Procedures: n/a Results interpretation: Verified all documentation Verification and Attestation of Medical Student E/M Service A medical student performed and documented this service in my presence. I reviewed and verified all information documented by the medical student and made modifications to such information, when appropriate. I personally performed the physical exam and medical decision making. Tammie Hemphill, Nov 24, 2021,05:50 KARMA BEYER Nov 23, 2021 11:45 TAMMIE HEMPHILL DO Nov 24, 2021 05:50
[2021-11-23] MEDS: LACTATED RINGERS 1,000 ML IV PRN ×2 (13:37→15:33)
--- NOTE | 2021-11-23 13:55 | Progress Note ---
Subjective Date Seen by a Provider: Nov 23, 2021 Time Seen by a Provider: 12:00 Subjective/Events-last exam doing well. no complaints. LFT's normalized. Objective Exam Vital Signs Date Time Temp Pulse Resp B/P (MAP) Pulse Ox O2 Delivery O2 Flow Rate FiO2 11/23/21 07:46 36.3 63 22 151/72 (98) 95 Room Air 11/23/21 07:00 80 11/23/21 01:00 60 11/23/21 00:26 37.6 66 18 133/83 (100) 95 Room Air 11/22/21 20:50 94 Room Air 11/22/21 19:00 72 11/22/21 16:00 35.5 66 18 124/70 (88) 97 Room Air I & O 11/23/21 07:00 Intake Total 1500 ml Output Total 1475 ml Balance 25 ml Capillary Refill : Less Than 3 Seconds General Appearance: No Apparent Distress HEENT: PERRL/EOMI Neck: Full Range of Motion Respiratory: Chest Non Tender, Lungs Clear, Normal Breath Sounds Cardiovascular: Regular Rate, Rhythm Gastrointestinal: normal bowel sounds, non tender, soft Extremity: Normal Capillary Refill Neurologic/Psychiatric: Alert, Oriented x3 Skin: Normal Color Lymphatic: No Adenopathy Results Lab Laboratory Tests 11/23/21 05:38: White Blood Count 5.1, Red Blood Count 3.50L, Hemoglobin 10.9L, Hematocrit 32L, Mean Corpuscular Volume 91, Mean Corpuscular Hemoglobin 31, Mean Corpuscular Hemoglobin Concent 34, Red Cell Distribution Width 13.6, Platelet Count 123L, Mean Platelet Volume 11.2, Immature Granulocyte % (Auto) 1, Neutrophils (%) (Auto) 70, Lymphocytes (%) (Auto) 14, Monocytes (%) (Auto) 10, Eosinophils (%) (Auto) 5, Basophils (%) (Auto) 1, Neutrophils # (Auto) 3.6, Lymphocytes # (Auto) 0.7L, Monocytes # (Auto) 0.5, Eosinophils # (Auto) 0.3, Basophils # (Auto) 0.0, Immature Granulocyte # (Auto) 0.0, Sodium Level 135, Potassium Level 3.9, Chloride Level 109H, Carbon Dioxide Level 18L, Anion Gap 8, Blood Urea Nitrogen 11, Creatinine 0.75, Estimat Glomerular Filtration Rate 86, BUN/Creatinine Ratio 15, Glucose Level 102, Calcium Level 8.0L, Corrected Calcium 9.0, Total Bilirubin 1.3H, Aspartate Amino Transf (AST/SGOT) 56H, Alanine Aminotransferase (ALT/SGPT) 107H, Alkaline Phosphatase 343H, Total Protein 5.0L, Albumin 2.7L, Lipase 88H Assessment/Plan Assessment/Plan Assess & Plan/Chief Complaint choledocholithiasis with influenza B. monitor LFT's and ron/lip. cont clears. abx for ascending cholangitis prophylaxis. LFT's trending down. possible laparoscopic cholecystectomy on this admission and continues to be asx from flu. will plan for lap opal on sun(11/23) for cholelithiasis and previous choledocholithiasis. CHESTER DE LOS SANTOS MD Nov 23, 2021 13:55
[2021-11-23] MEDS: ENOXAPARIN 40 MG/0.4 ML (LOVENOX) SYR SC SCH (14:02)
[2021-11-23] MEDS: LIDOCAINE/EPI 1%-1:200,000 (XYLOCAINE) 30 ML VIAL ONE ×2 (14:02→14:23)
[2021-11-23] MEDS ORDERED: GLYCOPYRROLATE 0.2 MG/ML (ROBINUL) 2 ML VIAL ONE (15:40)
[2021-11-23] MEDS ORDERED: NEOSTIGMINE 3 MG/3 ML VIAL ONE (15:40)
--- NOTE | 2021-11-23 15:55 | Progress Note-Post Operative ---
Post-Operative Progess Note Surgeon (s)/Visual Designer (s) Surgeon CHESTER DE LOS SANTOS MD Visual Designer: isaías perez SHREDDING SPECIALIST Pre-Operative Diagnosis cholelithiasis and choledocholithiasis Post-Operative Diagnosis acute calculous cholecystitis with hx choledocholithiasis. Procedure & Operative Findings Date of Procedure 11/23/21 Procedure Performed/Findings laparoscopic cholecystectomy Anesthesia Type get Estimated Blood Loss Estimated blood loss (mL): minimal Specimens/Packing Specimens Removed gallbladder CHESTER DE LOS SANTOS MD Nov 23, 2021 15:55
[2021-11-23] MEDS ORDERED: fentaNYL INJ 100 MCG/2 ML AMP IVP PRN (16:00)
--- NOTE | 2021-11-24 00:16 | OPERATIVE REPORT ---
DATE OF SERVICE: 11/23/2021 ATTENDING PRIMARY CARE PHYSICIAN: Dr. Bustamante. ADMITTING PHYSICIAN: Dr. Brown. PREOPERATIVE DIAGNOSES: Symptomatic cholelithiasis and choledocholithiasis. POSTOPERATIVE DIAGNOSES: Acute calculous cholecystitis and previous history of choledocholithiasis. PROCEDURE: Laparoscopic cholecystectomy. SURGEON: Chet Collier MD FOOD AND BEVERAGE CONTROLLER: Elkin Newell APRN. ANESTHESIA: General endotracheal. ESTIMATED BLOOD LOSS: 250 mL. FINDINGS: Inflamed appendix with significant adhesion tissue. Multiple large gallstones. DISPOSITION: The patient tolerated the procedure well. INDICATIONS: The patient is an 89-year-old male, who presented to [facility] with generalized weakness as well as exertional shortness of breath. He was found to be influenza B positive. Upon further examination, he was found to have skin jaundice as well as scleral icterus and laboratory work was done, which did show an elevation of liver function enzymes including a total bilirubin of 5.5. Further evaluation with a CT scan did show cholelithiasis and gallbladder wall thickening; however, no ductal dilatation as well as no pancreatic masses. The patient was admitted and started on medical management with IV fluids and bowel rest as well as antibiotics to prevent ascending cholangitis. Serial labs were drawn, which did show normalization of his liver function enzymes as well as amylase and lipase. DESCRIPTION OF PROCEDURE: The patient was brought to the operating room, laid supine on the table. After adequate IV pain and sedative medications and general endotracheal intubation, the abdomen was prepped and draped in standard surgical fashion. A 0.5% Marcaine with epinephrine was used to anesthetize overlying skin left upper abdominal quadrant and transverse skin incision made using 15 blade. An 0 silk suture was applied to the medial aspect incision for retraction and a Veress needle inserted with a low opening pressure of 0 mmHg. The abdomen was insufflated to 15 mmHg pressure. The Veress needle removed and a 5 mm XL trocar placed followed by a 5 mm 45-degree angle laparoscope visualizing the peritoneal cavity. A 4-quadrant abdominal exploration was performed. There were omental adhesions towards the entirety of the gallbladder as well as gallbladder wall thickening consistent with acute cholecystitis. Under direct visualization, we then proceeded to place a supraumbilical 10 mm port after the skin and peritoneal lining were anesthetized using 0.5% Marcaine with epinephrine and a transverse skin incision made using 15 blade. In a similar manner, a right upper abdominal quadrant 5 mm port was placed. The omental adhesions towards the fundus of the gallbladder were then gently taken down using blunt dissection as well as electrocautery on hook instrument. Once the fundus of the appendix was visualized, we were able to grasp the appendix, which was very thick walled and retracted anteriorly and superiorly and the patient was then placed in reverse Trendelenburg position as well as plane right side up, left side down. We then proceeded with meticulous gentle dissection of the omental adhesions towards the gallbladder. We did this until the hepatoduodenal ligament was identified and opened and dissected using blunt dissection as well as electrocautery on the hook instrument as well as a [place] dissector. The entire critical view of safety was identified including the triangle of Calot as well as the cystic duct and artery as the only two structures going into the gallbladder as well as the cystic plate behind the proximal gallbladder. A timeout was then taken and the cystic duct and artery were then clipped proximally, distally and cut with EndoShears. The gallbladder was then dissected off the liver bed using electrocautery and hook instrument with visualization of good hemostasis as well as no leaking ducts of Luschka. The gallbladder was removed through the 10 mm port site using an EndoCatch bag. Due to the extensive dissection and a 19-Welsh Lucian-Garces drain was placed into the gallbladder fossa and brought out the left upper abdominal quadrant 5 mm port and sutured to the skin using 3-0 nylon interrupted suture. The gallbladder was removed through the 10 mm port site and the 10 mm port site fascia and peritoneum were then closed under direct visualization using a Benigno-Markie device and 0 Vicryl suture. Abdomen was desufflated and remaining ports removed. All skin incisions were closed using 4-0 Monocryl running subcuticular sutures. Wounds were then cleaned and covered with Dermabond. The patient tolerated the procedure well. We will start IV and oral pain medication as well as a clear liquid diet and admit him back to the general surgical floor. We will get repeat labs tomorrow morning and once his labs continued to be normalized, he is tolerating a diet and has adequate pain control, ambulating well, we will discharge him home. Job ID: [id number] DocumentID: [id number] Dictated Date: 11/23/2021 16:02:27 Manager Housekeeping Date: 11/23/2021 23:52:18 Dictated By: CHET COLLIER MD
[2021-11-24 04:15] VITALS: BP 121/58
[2021-11-24 05:59] LABS: BASOPHILS # (AUTO) 0.1 10^3/uL (0.0-0.1); BASOPHILS % (AUTO) 0 % (0-10); EOSINOPHILS % (AUTO) 0 % (0-10); HEMATOCRIT 34 % (40-54); HEMOGLOBIN 11.4 g/dL (13.3-17.7); LYMPHOCYTES # (AUTO) 0.5 10^3/uL (1.0-4.0); LYMPHOCYTES % (AUTO) 4 % (12-44); MEAN CORPUSCULAR HEMOGLOBIN 31 pg (25-34); MEAN CORPUSCULAR HGB CONC 34 g/dL (32-36); MEAN CORPUSCULAR VOLUME 92 fL (80-99); MEAN PLATELET VOLUME 10.6 fL (9.0-12.2); MONOCYTES # (AUTO) 1.2 10^3/uL (0.0-1.0); MONOCYTES % (AUTO) 8 % (0-12); NEUTROPHILS # (AUTO) 12.3 10^3/uL (1.8-7.8); NEUTROPHILS % (AUTO) 87 % (42-75); PLATELET COUNT 179 10^3/uL (130-400); WHITE BLOOD COUNT 14.2 10^3/uL (4.3-11.0)
[2021-11-24] MEDS: PIPERACILLIN SODIUM/TAZOBACTAM 4.5 GM in NS (IVPB) 100 ML IV SCH (06:12)
[2021-11-24 06:13] LABS: ALBUMIN 2.8 GM/DL (3.2-4.5)
[2021-11-24 06:14] LABS: POTASSIUM 4.2 MMOL/L (3.6-5.0)
[2021-11-24 06:15] LABS: CALCIUM 8.1 MG/DL (8.5-10.1)
[2021-11-24 06:18] LABS: BILIRUBIN,TOTAL 1.8 MG/DL (0.1-1.0)
[2021-11-24 06:19] LABS: CREATININE SERUM 0.78 MG/DL (0.60-1.30)
[2021-11-24 08:00] VITALS: BP 145/69
[2021-11-24] MEDS: OSELTAMIVIR 75 MG (TAMIFLU) CAPSULE PO SCH (08:16)
[2021-11-24] MEDS: DOCUSATE SODIUM 100 MG (COLACE) CAP PO SCH ×2 (08:16→20:15)
[2021-11-24] MEDS: NS IV 1000 ML 1,000 ML IV SCH ×2 (08:16→16:59)
--- NOTE | 2021-11-24 08:24 | Cardiology Progress Note ---
Subjective Date Seen by Provider: Nov 24, 2021 Time Seen by Provider: 08:21 Subjective/Events-last exam Patient is laying down in bed, mild discomfort at the surgical site. No chest pain. Review of Systems General: No Chills, No Night Sweats, No Fatigue, No Malaise, No Appetite, No Other HEENT: No Head Aches, No Visual Changes, No Eye Pain, No Ear Pain, No Dysphasi a, No Sinus Congestion, No Post Nasal Drip, No Sore Throat, No Other Pulmonary: No Dyspnea, No Cough, No Pleuritic Chest Pain, No Other Cardiovascular: No: Chest Pain, Palpitations, Orthopnea, Paroxysmal Noc. Dyspnea, Edema, Lt Headedness, Other Objective-Cardiology Exam Last Set of Vital Signs Vital Signs 11/24/21 11/24/21 04:15 07:00 Temp 36.7 Pulse 75 Resp 18 B/P (MAP) 121/58 (79) Pulse Ox 92 O2 Delivery Room Air I&O Intake and Output 11/24/21 00:00 Intake Total 2400 ml Output Total 2000 ml Balance 400 ml Intake Oral 650 ml IV Total 1750 ml Output Urine Total 1800 ml Drainage Total 200 ml # Voids 2 General: Alert, Oriented X3, Cooperative HEENT: Atraumatic, PERRLA Neck: Supple, No JVD, No Thyromegaly Lungs: Clear to Auscultation, Normal Air Movement Heart: Normal S1, Normal S2, No Murmurs, Other (Irregular rhythm) Abdomen: Normal Bowel Sounds, Soft, No Tenderness, No Hepatosplenomegaly, No Masses Extremities: No Clubbing, No Cyanosis, No Edema, Normal Pulses, No Tenderness/Swelling Skin: No Rashes, No Breakdown, No Significant Lesion Neuro: Normal Gait, Normal Speech, Strength at 5/5 X4 Ext, Normal Tone, Sensation Intact Psych/Mental Status: Mental Status NL, Mood NL Results Lab Laboratory Tests 11/24/21 05:42 A/P-Cardiology Admission Diagnosis Paroxysmal atrial tachycardia Premature ventricular contractions Cholelithiasis Influenza B Assessment/Plan Irregular rhythm with frequent ventricular premature contractions, occasional atrial premature contractions, occasional short runs of paroxysmal atrial tachycardia. Suspicion of atrial fibrillation, had 1 telemetry strip suggestive of atrial fibrillation otherwise patient had artifact in sinus rhythm with first-degree AV block and frequent PVCs and few short runs of PAT's. Reporting that he had history of irregular heartbeat. Started on metoprolol and tolerating medication well. 2D echo on this admission showed ejection fraction 40 to 45%, left atrial dilatation, hypertrophy of the intra-atrial septum, PA pressure of 30 to 35 mmHg, mild mitral regurgitation. Influenza B, generalized weakness, managed by medical team Cholelithiasis, elevated liver enzymes, status post cholecystectomy on November 23, 2021, recovering well. Jaundice. ARIANA FALL MD Nov 24, 2021 08:24
--- NOTE | 2021-11-24 10:53 | Progress Note - Hospitalist ---
Subjective HPI/CC On Admission Date Seen by Provider: Nov 24, 2021 Time Seen by Provider: 11:00 Chief complaint: Severe weakness with influenza B and gallstones History of present illness: This is an 89-year-old white male who is very active and just Sunday was building a chain link fence who presented to [facility] w ith generalized weakness. He was found to have influenza B. He was noted to be jaundiced and labs revealed elevated total bilirubin and CT scan showed multiple gallstones. Antibiotics were initiated with Zosyn and IV fluids and supportive care. Dr. DE LOS SANTOS has been consulted and hopes to be able to remove the gallbladder but ERCP may be required prior to the cholecystectomy. Subjective/Events-last exam Patient feels much better Drain still in place Tolerating everything well Discharge plan for tomorrow Review of Systems General: Fatigue, Malaise Gastrointestinal: Abdominal Pain Objective Exam Vital Signs Vital Signs Date Time Temp Pulse Resp B/P (MAP) Pulse Ox O2 Delivery O2 Flow Rate FiO2 11/25/21 04:02 36.4 74 19 134/70 (91) 91 Room Air 11/23/21 16:30 2 Capillary Refill : Less Than 3 SecondsLess Than 3 Seconds General Appearance: No Apparent Distress, WD/WN, Chronically ill Respiratory: Lungs Clear, Normal Breath Sounds Cardiovascular: Regular Rate, Rhythm Neurologic/Psychiatric: Alert, Oriented x3, No Motor/Sensory Deficits, Normal Mood/Affect Results/Procedures Lab Laboratory Tests 11/24/21 05:42 Patient resulted labs reviewed. Imaging: Reviewed Imaging Report Assessment/Plan Assessment and Plan Assess & Plan/Chief Complaint Assessment: Status post cholecystectomy Plan: Discharge plan tomorrow Diagnosis/Problems Diagnosis/Problems (1) Pancreatitis, gallstone Status: Acute (2) Cholelithiasis Status: Acute Qualifiers: Cholelithiasis location: gallbladder Cholecystitis presence: without cholecystitis Biliary obstruction: without biliary obstruction Qualified Codes: K80.20 - Calculus of gallbladder without cholecystitis without obs truction (3) Influenza B Status: Acute EDITH HEMPHILL DO Nov 24, 2021 10:53
[2021-11-24 12:02] VITALS: BP 108/59
--- NOTE | 2021-11-24 13:14 | Anesthesia-General Post-Op ---
General Patient Condition Mental Status/LOC: Same as Preop Cardiovascular: Satisfactory Nausea/Vomiting: Absent Respiratory: Satisfactory Pain: Controlled Complications: Absent Post Op Complications Complications None Follow Up Care/Instructions Patient Instructions None needed. Anesthesia/Patient Condition Patient Condition Patient is doing well, no complaints, stable vital signs, no apparent adverse anesthesia problems. No complications reported per nursing. D/C home per [facility] Criteria: Yes ADINA BEST CRNA Nov 24, 2021 13:14
--- NOTE | 2021-11-24 14:04 | Progress Note ---
Subjective Date Seen by a Provider: Nov 24, 2021 Time Seen by a Provider: 14:00 Subjective/Events-last exam doing well. pain controlled. tolerating diet. no fever/chills. Objective Exam Vital Signs Date Time Temp Pulse Resp B/P (MAP) Pulse Ox O2 Delivery O2 Flow Rate FiO2 11/24/21 13:00 65 11/24/21 12:02 36.5 67 20 108/59 (75) 95 Room Air 11/24/21 08:00 36.6 85 20 145/69 (94) 96 Room Air 11/24/21 07:00 75 11/24/21 04:15 36.7 73 18 121/58 (79) 92 Room Air 11/24/21 01:00 70 11/23/21 23:26 36.9 70 18 157/74 (101) 96 Room Air 11/23/21 21:00 94 Room Air 11/23/21 19:40 36.2 76 20 171/84 (113) 90 Room Air 11/23/21 19:00 65 11/23/21 17:06 36.5 60 19 147/72 (97) 91 Room Air 11/23/21 16:59 36.5 60 19 147/72 (97) 91 Room Air 11/23/21 16:55 Room Air 11/23/21 16:55 36.2 20 142/76 (98) 94 Room Air 11/23/21 16:45 Room Air 11/23/21 16:40 20 142/76 (98) 94 Room Air 11/23/21 16:30 OxyMask 2 11/23/21 16:30 20 139/80 (99) 95 OxyMask 2 11/23/21 16:20 20 137/73 (94) 96 OxyMask 3 11/23/21 16:15 OxyMask 3 11/23/21 16:10 20 134/74 (94) 95 OxyMask 6 11/23/21 16:00 20 135/74 (94) 94 OxyMask 6 11/23/21 15:58 OxyMask 6 11/23/21 15:58 36.2 20 134/71 (92) 94 OxyMask 6 I & O 11/24/21 07:00 Intake Total 2700 ml Output Total 3230 ml Balance -530 ml Capillary Refill : Less Than 3 SecondsLess Than 3 Seconds General Appearance: No Apparent Distress HEENT: PERRL/EOMI Neck: Full Range of Motion Respiratory: Chest Non Tender Cardiovascular: Regular Rate, Rhythm Gastrointestinal: normal bowel sounds, soft, tenderness Extremity: Normal Capillary Refill Neurologic/Psychiatric: Alert, Oriented x3 Skin: Normal Color Lymphatic: No Adenopathy Results Lab Laboratory Tests 11/24/21 05:42: White Blood Count 14.2H, Red Blood Count 3.65L, Hemoglobin 11.4L, Hematocrit 34L , Mean Corpuscular Volume 92, Mean Corpuscular Hemoglobin 31, Mean Corpuscular Hemoglobin Concent 34, Red Cell Distribution Width 13.7, Platelet Count 179, Mean Platelet Volume 10.6, Immature Granulocyte % (Auto) 1, Neutrophils (%) (Auto) 87H, Lymphocytes (%) (Auto) 4L, Monocytes (%) (Auto) 8, Eosinophils (%) (Auto) 0, Basophils (%) (Auto) 0, Neutrophils # (Auto) 12.3H, Lymphocytes # (Auto) 0.5L, Monocytes # (Auto) 1.2H, Eosinophils # (Auto) 0.0, Basophils # (Auto) 0.1, Immature Granulocyte # (Auto) 0.1, Sodium Level 133L, Potassium Level 4.2, Chloride Level 105, Carbon Dioxide Level 17L, Anion Gap 11, Blood Urea Nitrogen 11, Creatinine 0.78, Estimat Glomerular Filtration Rate 85, BUN/Creatinine Ratio 14, Glucose Level 143H, Calcium Level 8.1L, Corrected Calcium 9.1, Total Bilirubin 1.8H, Aspartate Amino Transf (AST/SGOT) 239H, Alanine Aminotransferase (ALT/SGPT) 176H, Alkaline Phosphatase 300H, Total Prot ein 5.0L, Albumin 2.8L, Lipase 21 Microbiology 11/22/21 MRSA Screen - Final, Complete MRSA not isolated Assessment/Plan Assessment/Plan Assess & Plan/Chief Complaint cholelithiasis and choledocholithiasis with influenza B s/p laparoscopic cholecystectomy. ambulate. check labs in am. if copious drain output will take out in office in one week. CHESTER DE LOS SANTOS MD Nov 24, 2021 14:04
[2021-11-24] MEDS ORDERED: HYDR-3817 PO (14:51)
--- NOTE | 2021-11-24 14:51 | Discharge Inst-Surgical ---
D/C Lap Instructions-FILIBERTO New, Converted, or Re-Newed RX: RX on Chart Follow Up Appt in 2 weeks Activity as tolerated No driving for 24 hours No driving while on pain medications Incentive Spirometry use every 2 hours while awake Regular Diet Symptoms to Report: Fever over 101 degree F, Nausea/Vomiting Infection Signs and Symptoms to report: Increased redness, Foul odor of wound, Increased drainage Bathing instructions: May shower Operative Area Clean/Dry; Keep incision clean/dry If any problems/questions: Contact your physician or go to Emergency Room CHESTER DE LOS SANTOS MD Nov 24, 2021 14:51
--- NOTE | 2021-11-24 15:03 | Anesthesia-General Post-Op ---
General Patient Condition Mental Status/LOC: Same as Preop Cardiovascular: Satisfactory Nausea/Vomiting: Absent Respiratory: Satisfactory Pain: Controlled Complications: Absent Post Op Complications Complications None Follow Up Care/Instructions Patient Instructions None needed. Anesthesia/Patient Condition Patient Condition Patient is doing well, sitting up in chair, no complaints, stable vital signs, no apparent adverse anesthesia problems. D/C home per [facility] Criteria: Yes CHASITY MANCILLA DO Nov 24, 2021 15:03
[2021-11-24] MEDS: ENOXAPARIN 40 MG/0.4 ML (LOVENOX) SYR SC SCH (16:57)
[2021-11-24 19:47] VITALS: BP 146/69
[2021-11-24] MEDS: MELATONIN 3 MG TABLET PO PRN (21:07)
[2021-11-25] VITALS (7 sets, daily range): BP systolic 128–148; BP diastolic 63–81
[2021-11-25 06:01] LABS: BASOPHILS % (AUTO) 0 % (0-10); EOSINOPHILS % (AUTO) 0 % (0-10); HEMATOCRIT 35 % (40-54); HEMOGLOBIN 11.9 g/dL (13.3-17.7); LYMPHOCYTES # (AUTO) 0.9 10^3/uL (1.0-4.0); LYMPHOCYTES % (AUTO) 6 % (12-44); MEAN CORPUSCULAR HEMOGLOBIN 31 pg (25-34); MEAN CORPUSCULAR HGB CONC 34 g/dL (32-36); MEAN CORPUSCULAR VOLUME 92 fL (80-99); MEAN PLATELET VOLUME 10.4 fL (9.0-12.2); MONOCYTES # (AUTO) 1.5 10^3/uL (0.0-1.0); MONOCYTES % (AUTO) 10 % (0-12); NEUTROPHILS # (AUTO) 11.9 10^3/uL (1.8-7.8); NEUTROPHILS % (AUTO) 82 % (42-75); PLATELET COUNT 213 10^3/uL (130-400); WHITE BLOOD COUNT 14.6 10^3/uL (4.3-11.0)
[2021-11-25 06:15] LABS: ALBUMIN 2.9 GM/DL (3.2-4.5); POTASSIUM 3.9 MMOL/L (3.6-5.0)
[2021-11-25 06:16] LABS: CALCIUM 8.5 MG/DL (8.5-10.1)
[2021-11-25 06:18] LABS: TOTAL PROTEIN 5.3 GM/DL (6.4-8.2)
[2021-11-25 06:19] LABS: BILIRUBIN,TOTAL 1.7 MG/DL (0.1-1.0)
--- NOTE | 2021-11-25 06:19 | Progress Note - Hospitalist ---
Subjective HPI/CC On Admission Date Seen by Provider: Nov 25, 2021 Time Seen by Provider: 10:30 Chief complaint: Severe weakness with influenza B and gallstones History of present illness: This is an 89-year-old white male who is very active and just Sunday was building a chain link fence who presented to [facility] w ith generalized weakness. He was found to have influenza B. He was noted to be jaundiced and labs revealed elevated total bilirubin and CT scan showed multiple gallstones. Antibiotics were initiated with Zosyn and IV fluids and supportive care. Dr. DE LOS SANTOS has been consulted and hopes to be able to remove the gallbladder but ERCP may be required prior to the cholecystectomy. Subjective/Events-last exam Patient doing okay Postop ileus will delay discharge Liver enzymes improving Ambulation will be done today No nausea right now No BM yet Review of Systems Gastrointestinal: Abdominal Pain Objective Exam Vital Signs Vital Signs Date Time Temp Pulse Resp B/P (MAP) Pulse Ox O2 Delivery O2 Flow Rate FiO2 11/26/21 04:28 36.7 85 18 133/81 (98) 91 Room Air 11/23/21 16:30 2 Capillary Refill : Less Than 3 SecondsLess Than 3 Seconds General Appearance: No Apparent Distress, WD/WN, Chronically ill Respiratory: Lungs Clear, Normal Breath Sounds Cardiovascular: Regular Rate, Rhythm Neurologic/Psychiatric: Alert, Oriented x3, No Motor/Sensory Deficits, Normal Mood/Affect Results/Procedures Lab Laboratory Tests 11/25/21 05:35 Patient resulted labs reviewed. Imaging: Reviewed Imaging Report Assessment/Plan Assessment and Plan Assess & Plan/Chief Complaint Assessment: Status post cholecystectomy Plan: Discharge plan tomorrow 11/25/2021: Postop ileus management Diagnosis/Problems Diagnosis/Problems (1) Pancreatitis, gallstone Status: Acute (2) Cholelithiasis Status: Acute Qualifiers: Cholelithiasis location: gallbladder Cholecystitis presence: without cholecystitis Biliary obstruction: without biliary obstruction Qualified Codes: K80.20 - Calculus of gallbladder without cholecystitis without obstruction (3) Influenza B Status: Acute EDITH HEMPHILL DO Nov 25, 2021 06:19
[2021-11-25 06:21] LABS: CREATININE SERUM 0.74 MG/DL (0.60-1.30)
[2021-11-25 06:25] LABS: BAND NEUTROPHILS 1 %; LYMPHOCYTES % (MANUAL) 5 %; MONOCYTES % (MANUAL) 8 %; NEUTROPHILS % (MANUAL) 86 %; RBC MORPH NORMAL
[2021-11-25] MEDS: DOCUSATE SODIUM 100 MG (COLACE) CAP PO SCH ×2 (09:54→20:06)
[2021-11-25] MEDS: ONDANSETRON 4 MG/2 ML (SDV) Z0FRAN IV PRN (09:58)
--- NOTE | 2021-11-25 09:59 | Progress Note ---
Subjective Date Seen by a Provider: Nov 25, 2021 Time Seen by a Provider: 09:30 Subjective/Events-last exam doing well. no complaints. tolerating diet. no fever/chills. ambulating well with good pain control. Objective Exam Vital Signs Date Time Temp Pulse Resp B/P (MAP) Pulse Ox O2 Delivery O2 Flow Rate FiO2 11/25/21 08:00 36.4 71 18 129/68 (88) 92 Room Air 11/25/21 04:02 36.4 74 19 134/70 (91) 91 Room Air 11/25/21 00:00 36.7 75 20 145/76 (99) 90 Room Air 11/24/21 20:00 Room Air 11/24/21 19:55 94 Room Air 11/24/21 19:47 36.4 75 20 146/69 (94) 89 Room Air 11/24/21 13:00 65 11/24/21 12:02 36.5 67 20 108/59 (75) 95 Room Air I & O 11/25/21 07:00 Intake Total 2360 ml Output Total 1740 ml Balance 620 ml Capillary Refill : Less Than 3 SecondsLess Than 3 Seconds General Appearance: No Apparent Distress HEENT: PERRL/EOMI Neck: Full Range of Motion Respiratory: Chest Non Tender, Lungs Clear Cardiovascular: Regular Rate, Rhythm Gastrointestinal: normal bowel sounds, soft Extremity: Normal Capillary Refill Neurologic/Psychiatric: Alert, Oriented x3 Skin: Normal Color Lymphatic: No Adenopathy Results Lab Laboratory Tests 11/25/21 05:35: White Blood Count 14.6H, Red Blood Count 3.79L, Hemoglobin 11.9L, Hematocrit 35L , Mean Corpuscular Volume 92, Mean Corpuscular Hemoglobin 31, Mean Corpuscular Hemoglobin Concent 34, Red Cell Distribution Width 13.9, Platelet Count 213, Mean Platelet Volume 10.4, Immature Granulocyte % (Auto) 1, Neutrophils (%) (Auto) 82H, Lymphocytes (%) (Auto) 6L, Monocytes (%) (Auto) 10, Eosinophils (%) (Auto) 0, Basophils (%) (Auto) 0, Neutrophils # (Auto) 11.9H, Lymphocytes # (Auto) 0.9L, Monocytes # (Auto) 1.5H, Eosinophils # (Auto) 0.0, Basophils # (Auto) 0.0, Immature Granulocyte # (Auto) 0.2H, Neutrophils % (Manual) 86, Lymphocytes % (Manual) 5, Monocytes % (Manual) 8, Band Neutrophils 1, Blood Morphology Comment NORMAL, Sodium Level 129L, Potassium Level 3.9, Chloride Level 99, Carbon Dioxide Level 20L, Anion Gap 10, Blood Urea Nitrogen 11, Creatinine 0.74, Estimat Glomerular Filtration Rate 87, BUN/Creatinine Ratio 15, Glucose Level 135H, Calcium Level 8.5, Corrected Calcium 9.4, Total Bilirubin 1.7H, Aspartate Amino Transf (AST/SGOT) 246H, Alanine Aminotransferase (ALT/SGPT) 244H, Alkaline Phosphatase 313H, Total Protein 5.3L, Albumin 2.9L, Lipase 46 Microbiology 11/22/21 MRSA Screen - Final, Complete MRSA not isolated Assessment/Plan Assessment/Plan Assess & Plan/Chief Complaint cholelithiasis and choledocholithiasis with influenza B s/p laparoscopic cholecystectomy. ambulate. check labs in am. if copious drain output will take out in office in one week. CHESTER DE LOS SANTOS MD Nov 25, 2021 09:59
--- NOTE | 2021-11-25 10:52 | Diagnostic Imaging Report ---
INDICATION: Abdominal pain and distention. Comparison with CT abdomen 11/19/2021. FINDINGS: There is a large drainage catheter overlying the right colic gutter and mid abdomen. There are multiple dilated loops of small bowel with air-fluid levels. There is very little gas in the colon. IMPRESSION: There is finding of ileus. Could not exclude partial small bowel obstruction. No definite free air is demonstrated at this time. Dictated by: Dictated on workstation # [id number]
[2021-11-25] MEDS: NS IV 1000 ML 1,000 ML IV SCH (11:03)
[2021-11-25] MEDS: polyethylene glycoL POWDER 17 GM (MIRALAX) PACK PO PRN ×2 (11:11→20:06)
--- NOTE | 2021-11-25 11:31 | Cardiology Progress Note ---
Subjective Date Seen by Provider: Nov 25, 2021 Time Seen by Provider: 11:30 Subjective/Events-last exam Patient was seen at bedside, has vomited earlier today. No chest pain. Review of Systems General: No Chills, No Night Sweats, No Fatigue, No Malaise, No Appetite, No Other HEENT: No Head Aches, No Visual Changes, No Eye Pain, No Ear Pain, No Dysphasia, No Sinus Congestion, No Post Nasal Drip, No Sore Throat, No Other Pulmonary: No Dyspnea, No Cough, No Pleuritic Chest Pain, No Other Cardiovascular: No: Chest Pain, Palpitations, Orthopnea, Paroxysmal Noc. Dyspnea, Edema, Lt Headedness, Other Objective-Cardiology Exam Last Set of Vital Signs Vital Signs 11/25/21 08:00 Temp 36.4 Pulse 71 Resp 18 B/P (MAP) 129/68 (88) Pulse Ox 92 O2 Delivery Room Air I&O Intake and Output 11/25/21 00:00 Intake Total 1860 ml Output Total 3220 ml Balance -1360 ml Intake Oral 1560 ml IV Total 300 ml Output Urine Total 1800 ml Drainage Total 1420 ml # Voids 3 General: Alert, Oriented X3, Cooperative HEENT: Atraumatic, PERRLA Neck: Supple, No JVD, No Thyromegaly Lungs: Clear to Auscultation, Normal Air Movement Heart: Normal S1, Normal S2, No Murmurs, Other (Irregular rhythm) Abdomen: Normal Bowel Sounds, Soft, No Tenderness, No Hepatosplenomegaly, No Masses Extremities: No Clubbing, No Cyanosis, No Edema, Normal Pulses, No Tenderness/Swelling Skin: No Rashes, No Breakdown, No Significant Lesion Neuro: Normal Gait, Normal Speech, Strength at 5/5 X4 Ext, Normal Tone, Sensation Intact Psych/Mental Status: Mental Status NL, Mood NL Results Lab Laboratory Tests 11/25/21 05:35 A/P-Cardiology Admission Diagnosis Paroxysmal atrial tachycardia Premature ventricular contractions Cholelithiasis Influenza B Assessment/Plan Irregular rhythm with frequent ventricular premature contractions, occasional atrial premature contractions, occasional short runs of paroxysmal atrial tachycardia. Suspicion of atrial fibrillation, had 1 telemetry strip suggestive of atrial fibrillation otherwise patient had artifact in sinus rhythm with first-degree AV block and frequent PVCs and few short runs of PAT's. Reporting that he had history of irregular heartbeat. Started on metoprolol and tolerating medication well. 2D echo on this admission showed ejection fraction 40 to 45%, left atrial dilatation, hypertrophy of the intra-atrial septum, PA pressure of 30 to 35 mmHg, mild mitral regurgitation. Influenza B, generalized weakness, feeling better today. Cholelithiasis, elevated liver enzymes, status post cholecystectomy on November 23, 2021, started to have vomiting today, having postoperative ileus. Managed by medical team. Jaundice. ARIANA FALL MD Nov 25, 2021 11:31
[2021-11-25] MEDS: ENOXAPARIN 40 MG/0.4 ML (LOVENOX) SYR SC SCH (16:01)
[2021-11-25] MEDS: METOCLOPRAMIDE INJ 10 MG/2 ML (REGLAN) IVP SCH ×2 (16:02→23:35)
[2021-11-25] MEDS: MELATONIN 3 MG TABLET PO PRN (20:06)
[2021-11-26] MEDS: NS IV 1000 ML 1,000 ML IV SCH ×2 (02:08→11:07)
[2021-11-26] MEDS: ONDANSETRON 4 MG/2 ML (SDV) Z0FRAN IV PRN (04:12)
[2021-11-26 04:28] VITALS: BP 133/81
[2021-11-26] MEDS: METOCLOPRAMIDE INJ 10 MG/2 ML (REGLAN) IVP SCH ×3 (05:53→18:01)
[2021-11-26 06:14] LABS: BASOPHILS % (AUTO) 0 % (0-10); EOSINOPHILS % (AUTO) 0 % (0-10); HEMATOCRIT 36 % (40-54); HEMOGLOBIN 12.1 g/dL (13.3-17.7); LYMPHOCYTES # (AUTO) 0.6 10^3/uL (1.0-4.0); LYMPHOCYTES % (AUTO) 4 % (12-44); MEAN CORPUSCULAR HEMOGLOBIN 31 pg (25-34); MEAN CORPUSCULAR HGB CONC 34 g/dL (32-36); MEAN CORPUSCULAR VOLUME 92 fL (80-99); MEAN PLATELET VOLUME 9.8 fL (9.0-12.2); MONOCYTES # (AUTO) 1.3 10^3/uL (0.0-1.0); MONOCYTES % (AUTO) 8 % (0-12); NEUTROPHILS # (AUTO) 14.9 10^3/uL (1.8-7.8); NEUTROPHILS % (AUTO) 87 % (42-75); PLATELET COUNT 270 10^3/uL (130-400); WHITE BLOOD COUNT 17.2 10^3/uL (4.3-11.0)
[2021-11-26 06:27] LABS: ALBUMIN 2.8 GM/DL (3.2-4.5); POTASSIUM 3.7 MMOL/L (3.6-5.0)
[2021-11-26 06:28] LABS: CALCIUM 8.2 MG/DL (8.5-10.1)
[2021-11-26 06:31] LABS: BILIRUBIN,TOTAL 1.7 MG/DL (0.1-1.0)
[2021-11-26 06:33] LABS: CREATININE SERUM 0.75 MG/DL (0.60-1.30)
--- NOTE | 2021-11-26 07:33 | Progress Note - Hospitalist ---
Subjective HPI/CC On Admission Date Seen by Provider: Nov 26, 2021 Time Seen by Provider: 10:30 Chief complaint: Severe weakness with influenza B and gallstones History of present illness: This is an 89-year-old white male who is very active and just Sunday was building a chain link fence who presented to [facility] w ith generalized weakness. He was found to have influenza B. He was noted to be jaundiced and labs revealed elevated total bilirubin and CT scan showed multiple gallstones. Antibiotics were initiated with Zosyn and IV fluids and supportive care. Dr. DE LOS SANTOS has been consulted and hopes to be able to remove the gallbladder but ERCP may be required prior to the cholecystectomy. Subjective/Events-last exam Patient doing okay Zosyn started again White blood cell elevated at 17 Passed a bit of gas today Feels like he can ambulate more today Bowel sounds are still distant Review of Systems General: Fatigue, Malaise Gastrointestinal: Abdominal Pain Objective Exam Vital Signs Vital Signs Date Time Temp Pulse Resp B/P (MAP) Pulse Ox O2 Delivery O2 Flow Rate FiO2 11/27/21 03:17 37.2 89 18 114/68 (83) 93 Room Air 11/26/21 11:32 0.00 Capillary Refill : Less Than 3 SecondsLess Than 3 Seconds General Appearance: No Apparent Distress, WD/WN, Chronically ill, Thin Respiratory: Lungs Clear, Normal Breath Sounds Cardiovascular: Regular Rate, Rhythm Neurologic/Psychiatric: Alert, Oriented x3, No Motor/Sensory Deficits, Normal Mood/Affect Results/Procedures Lab Laboratory Tests 11/27/21 05:23 Patient resulted labs reviewed. Imaging: Reviewed Imaging Report Assessment/Plan Assessment and Plan Assess & Plan/Chief Complaint Assessment: Status post cholecystectomy Plan: Discharge plan tomorrow 11/25/2021: Postop ileus management 11/26/2021: Add Zosyn Ambulate Diagnosis/Problems Diagnosis/Problems (1) Pancreatitis, gallstone Status: Acute (2) Cholelithiasis Status: Acute Qualifiers: Cholelithiasis location: gallbladder Cholecystitis presence: without cholecystitis Biliary obstruction: without biliary obstruction Qualified Codes: K80.20 - Calculus of gallbladder without cholecystitis without obstruction (3) Influenza B Status: Acute EDITH HEMPHILL DO Nov 26, 2021 07:33
[2021-11-26 07:57] VITALS: BP 112/67
[2021-11-26] MEDS: DOCUSATE SODIUM 100 MG (COLACE) CAP PO SCH ×2 (08:43→20:00)
--- NOTE | 2021-11-26 09:41 | Progress Note - Surgery ---
BLU MELCHOR MED STUDENT 11/26/21 0941: Subjective Date Seen by a Provider: Nov 26, 2021 Time Seen by a Provider: 09:30 Subjective/Events-last exam Patient reporting continuing hiccups, minimal passage of flatus, and no BM since prior to surgery. He also reports some mild nausea and a few episodes no nonbloody emesis. He rates his abdominal pain a 3-4/10 around his incisional sites and describes the pain as sharp and intermittent. Movement and coughing as well as hiccuping worsen the pain. Lying still improves the pain. He reports ambulating in the [place] frequently and is inquiring as to whether or not an NGT will have to be placed. An abdominal x ray yesterday revealed findings of ileus, could not exclude partial SBO, an no visualized free air. Review of Systems General: No Chills, No Night Sweats, No Fatigue, No Malaise HEENT: No Head Aches, No Visual Changes Pulmonary: No Dyspnea, No Cough Cardiovascular: No: Chest Pain, Palpitations, Edema Gastrointestinal: Nausea, Vomiting, Abdominal Pain; No: Diarrhea, Constipation Genitourinary: No Dysuria, No Frequency Musculoskeletal: No: neck pain, back pain Neurological: No: Weakness, Numbness Objective Exam Vital Signs Date Time Temp Pulse Resp B/P (MAP) Pulse Ox O2 Delivery O2 Flow Rate FiO2 11/26/21 07:57 36.4 76 20 112/67 (82) 92 Room Air 11/26/21 04:28 36.7 85 18 133/81 (98) 91 Room Air 11/25/21 23:30 36.2 78 18 128/63 (84) 92 Room Air 11/25/21 20:10 Room Air 11/25/21 19:52 36.2 80 18 143/69 (93) 94 Room Air 11/25/21 15:43 36.0 88 18 129/79 (96) 95 Room Air 11/25/21 12:00 36.5 75 18 148/81 (103) 95 Room Air I & O 11/26/21 07:00 Intake Total 3080 ml Output Total 690 ml Balance 2390 ml Capillary Refill : Less Than 3 SecondsLess Than 3 Seconds General Appearance: No Apparent Distress, Chronically ill HEENT: PERRL/EOMI, Moist Mucous Membranes Neck: Full Range of Motion, Non Tender Respiratory: Chest Non Tender, Lungs Clear, No Accessory Muscle Use, No Respiratory Distress, Decreased Breath Sounds Cardiovascular: Regular Rate, Rhythm, No Edema, Normal Peripheral Pulses Peripheral Pulses: 1+ Dorsalis Pedis (R), 1+ Left Dors-Pedis (L); 2+ Radial Pulses (R), 2+ Radial Pulses (L) Gastrointestinal: abnormal bowel sounds (hypoactive x 4 quadrants), distended (minimally), tenderness (minimal to palpation) Extremity: Normal Capillary Refill, Non Tender, No Calf Tenderness, No Pedal Edema Neurologic/Psychiatric: Alert, Oriented x3, No Motor/Sensory Deficits, Normal Mood/Affect Skin: Warm/Dry, Other (Port incisions well approximated without redness, discharge, or drainage. Port incision dressing with CINTHYA drain C/D/I. ) Lymphatic: No Adenopathy (Head and Neck) Results Lab Laboratory Tests 11/26/21 06:05: White Blood Count 17.2H, Red Blood Count 3.88L, Hemoglobin 12.1L, Hematocrit 36L , Mean Corpuscular Volume 92, Mean Corpuscular Hemoglobin 31, Mean Corpuscular Hemoglobin Concent 34, Red Cell Distribution Width 13.6, Platelet Count 270, Mean Platelet Volume 9.8, Immature Granulocyte % (Auto) 1, Neutrophils (%) (Auto) 87H, Lymphocytes (%) (Auto) 4L, Monocytes (%) (Auto) 8, Eosinophils (%) (Auto) 0, Basophils (%) (Auto) 0, Neutrophils # (Auto) 14.9H, Lymphocytes # (Auto) 0.6L, Monocytes # (Auto) 1.3H, Eosinophils # (Auto) 0.0, Basophils # (Auto) 0.0, Immature Granulocyte # (Auto) 0.2H, Sodium Level 128L, Potassium Level 3.7, Chloride Level 96L, Carbon Dioxide Level 22, Anion Gap 10, Blood Urea Nitrogen 15, Creatinine 0.75, Estimat Glomerular Filtration Rate 86, BUN/Creatinine Ratio 20, Glucose Level 135H, Calcium Level 8.2L, Corrected Calcium 9.2, Total Bilirubin 1.7H, Aspartate Amino Transf (AST/SGOT) 81H, Alanine Aminotransferase (ALT/SGPT) 155H, Alkaline Phosphatase 276H, Total Protein 5.0L, Albumin 2.8L, Lipase 38 Microbiology 11/22/21 MRSA Screen - Final, Complete MRSA not isolated Assessment/Plan Assessment/Plan Assessment/Plan Influenza B Acute calculous cholecystitis S/P laparoscopic cholecystectomy 11-23-21 Leukocytosis Pancreatitis -Improving Transaminitis -Improving Postoperative ileus Nausea/Vomiting Paroxysmal atrial tachycardia Patient reporting increasing hiccuping, nausea, vomiting x 3-4 episodes and minimal passage of flatus. No BM since preop per patient report. Abdominal x ray yesterday -Findings consistent with ileus -Cannot exclude partial small bowel obstruction, no free air. IS q1hr [place] WBC up to 17.2 from 14.6 yesterday Antibiotics Lipase down to 38. AST and ALT trending down. Clear liquid diet CINTHYA drain, may need removal in office in one week if drainage remains copious Encourage frequent ambulation Up to chair TID Continue IVF's and antiemetics Continue conservative management CHADD LOZADA DO 11/26/21 1403: Subjective Subjective/Events-last exam Patient with a little bit of flatus. Currently on clear liquids. He states that he gets limited nausea with it though. Patient pain is about a 3-4 out of 10 at the incisional sites. He feels bloated. Having hiccups quite often. Serosanguineous output from CINTHYA drain. WBC increasing and was started on Zosyn today. Assessment/Plan Assessment/Plan Assessment/Plan Influenza B Acute calculous cholecystitis S/P laparoscopic cholecystectomy 11-23-21 Leukocytosis Pancreatitis -Improving Transaminitis -Improving Postoperative ileus Nausea/Vomiting Paroxysmal atrial tachycardia Patient reporting increasing hiccuping, nausea, vomiting x 3-4 episodes and minimal passage of flatus. No BM since preop per patient report. Abdominal x ray yesterday -Findings consistent with ileus -Cannot exclude partial small bowel obstruction, no free air. IS q1hr WA WBC up to 17.2 from 14.6 yesterday started on Zosyn Antibiotics Lipase down to 38. AST and ALT trending down. Clear liquid diet-if emesis make npo CINTHYA drain, continue to monitor Encourage frequent ambulation Up to chair TID Continue IVF's and antiemetics Supervisory-Addendum Brief Verification & Attestation Participated in pt care: history, MDM, physical Personally performed: exam, history, MDM, supervision of care Care discussed with: Medical Student Procedures: n/a Results interpretation: Verified all documentation Verification and Attestation of Medical Student E/M Service A medical student performed and documented this service in my presence. I reviewed and verified all information documented by the medical student and made modifications to such information, when appropriate. I personally performed the physical exam and medical decision making. Chadd Lozada, Nov 26, 2021,14:03 BLU MELCHOR MED STUDENT Nov 26, 2021 09:41 CHADD LOZADA DO Nov 26, 2021 14:03
[2021-11-26] MEDS ORDERED: PIPERACILLIN SODIUM/TAZOBACTAM 4.5 GM in NS (IVPB) 100 ML IV NR (10:45)
[2021-11-26 12:06] VITALS: BP 121/75
[2021-11-26] MEDS: ENOXAPARIN 40 MG/0.4 ML (LOVENOX) SYR SC SCH (16:06)
[2021-11-26 16:20] VITALS: BP 115/63
--- NOTE | 2021-11-26 16:20 | Progress Note - Cardiology ---
Cardiology SOAP Progress Note Subjective: Gen malaise Abd distention and constipation No cp or palp or syncope No swelling No n/v Objective: I&O/Vital Signs 11/26/21 11/26/21 11/26/21 11/26/21 04:28 07:57 08:00 11:32 Temp 36.7 36.4 Pulse 85 76 Resp 18 20 B/P (MAP) 133/81 (98) 112/67 (82) Pulse Ox 91 92 92 O2 Delivery Room Air Room Air Room Air O2 Flow Rate 2.00 0.00 11/26/21 12:06 Temp 36.3 Pulse 79 Resp 20 B/P (MAP) 121/75 (90) Pulse Ox 96 O2 Delivery Room Air 11/26/21 00:00 Intake Total 1380 ml Output Total 110 ml Balance 1270 ml Constitutional: AAO x 3, well-developed, well-nourished Respiratory: No accessory muscle use; other (fair bilat air entry, diminished at the bases) Cardiovascular: regular rate-rhythm, S1 and S2, systolic murmur (2/6 mid systolic murmur at the cardiac base) Gastrointestional: No tender; distended; No guarding, No rebound Extremities: No clubbing, No cyanosis, No significant edema Neurologic/Psychiatric: oriented x 3, other (moves all limbs) Skin: normal color, warm/dry Results/Procedures: Labs Laboratory Tests 11/26/21 06:05: White Blood Count 17.2H, Red Blood Count 3.88L, Hemoglobin 12.1L, Hematocrit 36L , Mean Corpuscular Volume 92, Mean Corpuscular Hemoglobin 31, Mean Corpuscular Hemoglobin Concent 34, Red Cell Distribution Width 13.6, Platelet Count 270, Mean Platelet Volume 9.8, Immature Granulocyte % (Auto) 1, Neutrophils (%) (Aut o) 87H, Lymphocytes (%) (Auto) 4L, Monocytes (%) (Auto) 8, Eosinophils (%) (Auto) 0, Basophils (%) (Auto) 0, Neutrophils # (Auto) 14.9H, Lymphocytes # (Auto) 0.6L, Monocytes # (Auto) 1.3H, Eosinophils # (Auto) 0.0, Basophils # (Auto) 0.0, Immature Granulocyte # (Auto) 0.2H, Sodium Level 128L, Potassium Level 3.7, Chloride Level 96L, Carbon Dioxide Level 22, Anion Gap 10, Blood Urea Nitrogen 15, Creatinine 0.75, Estimat Glomerular Filtration Rate 86, BUN/Creatinine Ratio 20, Glucose Level 135H, Calcium Level 8.2L, Corrected Calcium 9.2, Total Bilirubin 1.7H, Aspartate Amino Transf (AST/SGOT) 81H, Alanine Aminotransferase (ALT/SGPT) 155H, Alkaline Phosphatase 276H, Total Protein 5.0L, Albumin 2.8L, Lipase 38 Microbiology 11/22/21 MRSA Screen - Final, Complete MRSA not isolated Laboratory Tests 11/25/21 05:35 11/26/21 06:05 A/P: Assessment: Mild sinus node dysfunction - sinus rhythm with PACs vs wandering atrial pacemaker - occasional short runs of paroxysmal atrial tachycardia - beta-rolf initiated during this hosp, tolerating well Cardiac echo 11/22/21: LVEF 40 to 45%, left atrial dilatation, hypertrophy of the intra-atrial septum, PA pressure of 30 to 35 mmHg, mild mitral regurgitation. Influenza B Cholelithiasis - status post cholecystectomy on November 23, 2021 - post-op ileus, managed by Med and Surg svces Plan: I interviewed and examined the patient reviewed his med records Continue current cardiac regimen I spoke with him and his fam and answered CV-related questions in detail DIONY TROY MD FACP FAC CCDS Nov 26, 2021 16:20
[2021-11-26] MEDS: PIPERACILLIN SODIUM/TAZOBACTAM 4.5 GM in NS (IVPB) 100 ML IV SCH (18:01)
[2021-11-26 19:59] VITALS: BP 111/66
[2021-11-26 23:10] VITALS: BP 120/70
[2021-11-27] MEDS: METOCLOPRAMIDE INJ 10 MG/2 ML (REGLAN) IVP SCH ×5 (00:31→23:57)
[2021-11-27] MEDS: NS IV 1000 ML 1,000 ML IV SCH ×2 (03:09→11:04)
[2021-11-27] MEDS: PIPERACILLIN SODIUM/TAZOBACTAM 4.5 GM in NS (IVPB) 100 ML IV SCH ×3 (03:10→17:43)
[2021-11-27 03:17] VITALS: BP 114/68
[2021-11-27 05:41] LABS: BASOPHILS % (AUTO) 0 % (0-10); EOSINOPHILS % (AUTO) 0 % (0-10); HEMATOCRIT 33 % (40-54); HEMOGLOBIN 11.1 g/dL (13.3-17.7); LYMPHOCYTES # (AUTO) 0.7 10^3/uL (1.0-4.0); LYMPHOCYTES % (AUTO) 5 % (12-44); MEAN CORPUSCULAR HEMOGLOBIN 31 pg (25-34); MEAN CORPUSCULAR HGB CONC 33 g/dL (32-36); MEAN CORPUSCULAR VOLUME 92 fL (80-99); MEAN PLATELET VOLUME 9.9 fL (9.0-12.2); MONOCYTES # (AUTO) 0.9 10^3/uL (0.0-1.0); MONOCYTES % (AUTO) 6 % (0-12); NEUTROPHILS # (AUTO) 13.4 10^3/uL (1.8-7.8); NEUTROPHILS % (AUTO) 88 % (42-75); PLATELET COUNT 247 10^3/uL (130-400); WHITE BLOOD COUNT 15.2 10^3/uL (4.3-11.0)
[2021-11-27 05:53] LABS: ALBUMIN 2.6 GM/DL (3.2-4.5); POTASSIUM 3.7 MMOL/L (3.6-5.0)
[2021-11-27 05:54] LABS: CALCIUM 7.8 MG/DL (8.5-10.1)
[2021-11-27 05:55] LABS: TOTAL PROTEIN 4.7 GM/DL (6.4-8.2)
[2021-11-27 05:57] LABS: BILIRUBIN,TOTAL 1.9 MG/DL (0.1-1.0)
[2021-11-27 05:59] LABS: CREATININE SERUM 0.77 MG/DL (0.60-1.30)
[2021-11-27 08:03] VITALS: BP 108/65
--- NOTE | 2021-11-27 08:26 | Progress Note - Hospitalist ---
Subjective HPI/CC On Admission Date Seen by Provider: Nov 27, 2021 Time Seen by Provider: 11:45 Chief complaint: Severe weakness with influenza B and gallstones History of present illness: This is an 89-year-old white male who is very active and just Sunday was building a chain link fence who presented to [facility] with generalized weakness. He was found to have influenza B. He was noted to be jaundiced and labs revealed elevated total bilirubin and CT scan showed multiple gallstones. Antibiotics were initiated with Zosyn and IV fluids and supportive c are. Dr. DE LOS SANTOS has been consulted and hopes to be able to remove the gallbladder but ERCP may be required prior to the cholecystectomy. Subjective/Events-last exam Patient doing a lot better White blood cell count 14,[address] Neville salter HIDA scan scheduled for tomorrow CINTHYA drain still draining quite a bit of fluid that looks biliary Had 2 bowel movements this morning Review of Systems General: Fatigue, Malaise Gastrointestinal: Abdominal Pain Focused Exam Lactate Level 11/27/21 08:45: Lactic Acid Level 1.19 Objective Exam Vital Signs Vital Signs Date Time Temp Pulse Resp B/P (MAP) Pulse Ox O2 Delivery O2 Flow Rate FiO2 11/28/21 03:47 37.0 65 20 111/58 (75) 91 Room Air 11/27/21 07:47 0.00 Capillary Refill : Less Than 3 SecondsLess Than 3 Seconds General Appearance: No Apparent Distress, WD/WN, Chronically ill Respiratory: Lungs Clear, Normal Breath Sounds Cardiovascular: Regular Rate, Rhythm Neurologic/Psychiatric: Alert, Oriented x3, No Motor/Sensory Deficits, Normal Mood/Affect Results/Procedures Lab Patient resulted labs reviewed. Imaging: Reviewed Imaging Report Assessment/Plan Assessment and Plan Assess & Plan/Chief Complaint Assessment: Status post cholecystectomy Plan: Discharge plan tomorrow 11/25/2021: Postop ileus management 11/26/2021: Add Zosyn Ambulate 11/27/2021: HIDA scan tomorrow Antibiotics Diagnosis/Problems Diagnosis/Problems (1) Pancreatitis, gallstone Status: Acute (2) Cholelithiasis Status: Acute Qualifiers: Cholelithiasis location: gallbladder Cholecystitis presence: without cholecystitis Biliary obstruction: without biliary obstruction Qualified Codes: K80.20 - Calculus of gallbladder without cholecystitis without obstruction (3) Influenza B Status: Acute EDITH HEMPHILL DO Nov 27, 2021 08:26
--- NOTE | 2021-11-27 08:53 | Progress Note - Surgery ---
BLU MELCHOR MED STUDENT 11/27/21 0853: Subjective Date Seen by a Provider: Nov 27, 2021 Time Seen by a Provider: 08:15 Subjective/Events-last exam Reporting less hiccuping today. Reporting no nausea or vomiting and improving abdominal pain around incisions. Reports is passing more flatus today and was able to have a BM around 0600 today. Rates incisional pain a 3/10. Wanting to eat today. Has been ambulating frequently in the halls with a walker and standby assist. States he's been voiding frequently without issue. Review of Systems General: No Chills, No Night Sweats HEENT: No Head Aches, No Visual Changes Pulmonary: No Dyspnea, No Cough Cardiovascular: No: Chest Pain, Palpitations, Edema Gastrointestinal: Abdominal Pain (Improving, mostly incisional pain); No: Nausea, Vomiting, Diarrhea, Constipation Genitourinary: No Dysuria, No Frequency Musculoskeletal: No: neck pain, back pain Neurological: No: Weakness, Numbness, Confusion Objective Exam Vital Signs Date Time Temp Pulse Resp B/P (MAP) Pulse Ox O2 Delivery O2 Flow Rate FiO2 11/27/21 08:03 36.7 83 20 108/65 (79) 92 Room Air 11/27/21 07:47 93 Room Air 0.00 11/27/21 03:17 37.2 89 18 114/68 (83) 93 Room Air 11/26/21 23:10 37.1 77 19 120/70 (87) 93 Room Air 11/26/21 20:05 Room Air 11/26/21 19:59 36.9 77 23 111/66 (81) 92 Room Air 11/26/21 16:20 36.8 84 21 115/63 (80) 91 Room Air 11/26/21 12:06 36.3 79 20 121/75 (90) 96 Room Air 11/26/21 11:32 0.00 I & O 11/27/21 07:00 Intake Total 740 ml Output Total 1075 ml Balance -335 ml Capillary Refill : Less Than 3 SecondsLess Than 3 Seconds General Appearance: No Apparent Distress, WD/WN, Chronically ill HEENT: PERRL/EOMI, Moist Mucous Membranes Neck: Full Range of Motion, Non Tender Respiratory: Chest Non Tender, Lungs Clear, Normal Breath Sounds, No Accessory Muscle Use, No Respiratory Distress Cardiovascular: Regular Rate, Rhythm, No Edema, Normal Peripheral Pulses Peripheral Pulses: 1+ Dorsalis Pedis (R), 1+ Left Dors-Pedis (L); 2+ Radial Pulses (R), 2+ Radial Pulses (L) Gastrointestinal: normal bowel sounds, soft, distended (minimally), tenderness (minimal to palpation) Extremity: Normal Capillary Refill, Non Tender, No Calf Tenderness, No Pedal Edema Neurologic/Psychiatric: Alert, Oriented x3, No Motor/Sensory Deficits, Normal Mood/Affect Skin: Warm/Dry, Other (Port incisions well approximated without redness, discharge, or drainage. Port incision dressing with CINTHYA drain C/D/I. ) Lymphatic: No Adenopathy (Head and Neck) Results Lab Laboratory Tests 11/27/21 05:23: White Blood Count 15.2H, Red Blood Count 3.61L, Hemoglobin 11.1L, Hematocrit 33L , Mean Corpuscular Volume 92, Mean Corpuscular Hemoglobin 31, Mean Corpuscular Hemoglobin Concent 33, Red Cell Distribution Width 13.5, Platelet Count 247, Mean Platelet Volume 9.9, Immature Granulocyte % (Auto) 1, Neutrophils (%) (Auto) 88H, Lymphocytes (%) (Auto) 5L, Monocytes (%) (Auto) 6, Eosinophils (%) (Auto) 0, Basophils (%) (Auto) 0, Neutrophils # (Auto) 13.4H, Lymphocytes # (Auto) 0.7L, Monocytes # (Auto) 0.9, Eosinophils # (Auto) 0.0, Basophils # (Auto) 0.0, Immature Granulocyte # (Auto) 0.1, Sodium Level 130L, Potassium Level 3.7, Chloride Level 100, Carbon Dioxide Level 21, Anion Gap 9, Blood Urea Nitrogen 20H, Creatinine 0.77, Estimat Glomerular Filtration Rate 86, BUN/Creatinine Ratio 26, Glucose Level 107H, Calcium Level 7.8L, Corrected Calcium 8.9, Total Bilirubin 1.9H, Aspartate Amino Transf (AST/SGOT) 42H, Alanine Aminotransferase (ALT/SGPT) 98H, Alkaline Phosphatase 250H, Total Protein 4.7L, Albumin 2.6L, Lipase 32 Microbiology 11/22/21 MRSA Screen - Final, Complete MRSA not isolated Assessment/Plan Assessment/Plan Assessment/Plan Influenza B Acute calculous cholecystitis S/P laparoscopic cholecystectomy 11-23-21 Leukocytosis-Improving Pancreatitis -Improving Transaminitis -Improving Postoperative ileus Nausea/Vomiting-Resolved Paroxysmal atrial tachycardia Patient reporting passing more flatus today and had a BM this am. Hiccuping has improved. Less distended abdomen today. No nausea or vomiting reported today. Abdominal x ray 2-25 -Findings consistent with ileus -Cannot exclude partial small bowel obstruction, no free air. CINTHYA drain with bilious appearing drainage HIDA scan to further evaluate for potential biliary leak IS q1hr [place] WBC down to 15.2 today Zosyn started 2- Lipase 32 today, trending down, LFT's trending down Clear liquid diet-if emesis make npo CINTHYA drain, continue to monitor Encourage frequent ambulation Up to chair TID Continue IVF's and antiemetics CHADD LOZADA DO 11/27/21 1207: Subjective Subjective/Events-last exam Patient not having any nausea or vomiting. Patient is improving abdominal pain. Currently patient is n.p.o. He is ambulating. He has bowel function. Drain output has slight bilious tinged drainage. Patient restart antibiotics yesterday white blood cell count improving. Currently 15.2. Objective Exam General Appearance: No Apparent Distress, Chronically ill HEENT: PERRL/EOMI, Normal ENT Inspection Neck: Full Range of Motion, Non Tender Respiratory: Chest Non Tender, No Accessory Muscle Use, No Respiratory Distress Cardiovascular: Regular Rate, Rhythm, No JVD Gastrointestinal: soft, distended (minimally), tenderness (minimal to palpation), other (Drain with bilious tinged drainage) Extremity: Normal Capillary Refill, Non Tender, No Calf Tenderness Neurologic/Psychiatric: Alert, Oriented x3, No Motor/Sensory Deficits, Normal Mood/Affect Skin: Warm/Dry Lymphatic: No Adenopathy (Head and Neck) Assessment/Plan Assessment/Plan Assessment/Plan Influenza B Acute calculous cholecystitis S/P laparoscopic cholecystectomy 11-23-21 Leukocytosis-Improving Pancreatitis -Improving Transaminitis -Improving Postoperative ileus Nausea/Vomiting-Resolved Paroxysmal atrial tachycardia Patient reporting passing more flatus today and had a BM this am. Hiccuping has improved. Less distended abdomen today. No nausea or vomiting reported today. Abdominal x ray 2-25 -Findings consistent with ileus -Cannot exclude partial small bowel obstruction, no free air. CINTHYA drain with bilious appearing drainage HIDA scan to further evaluate for potential biliary leak IS q1hr WA WBC down to 15.2 today Zosyn started 2-26 Lipase 32 today, trending down, LFT's trending down Clear liquid diet-if emesis make npo CINTHYA drain, continue to monitor Encourage frequent ambulation Up to chair TID Continue IVF's and antiemetics Supervisory-Addendum Brief Verification & Attestation Participated in pt care: history, MDM, physical Personally performed: exam, history, MDM, supervision of care Care discussed with: Medical Student Procedures: n/a Results interpretation: Verified all documentation Verification and Attestation of Medical Student E/M Service A medical student performed and documented this service in my presence. I rev iewed and verified all information documented by the medical student and made modifications to such information, when appropriate. I personally performed the physical exam and medical decision making. Chadd Lozada, Nov 27, 2021,12:07 BLU MELCHOR MED STUDENT Nov 27, 2021 08:53 CHADD LOZADA DO Nov 27, 2021 12:07
[2021-11-27] MEDS: DOCUSATE SODIUM 100 MG (COLACE) CAP PO SCH ×2 (09:19→20:04)
[2021-11-27 11:55] VITALS: BP 110/60
[2021-11-27 15:30] VITALS: BP 131/69
--- NOTE | 2021-11-27 15:54 | Progress Note - Cardiology ---
Cardiology SOAP Progress Note Subjective: Gen weakness and malaise No shortness of breath No cp or palp or syncope No n/v Has had multiple BMs today Objective: I&O/Vital Signs 11/27/21 11/27/21 11/27/21 07:47 08:03 11:55 Temp 36.7 36.0 Pulse 83 69 Resp 20 18 B/P (MAP) 108/65 (79) 110/60 (77) Pulse Ox 93 92 93 O2 Delivery Room Air Room Air Room Air O2 Flow Rate 0.00 11/27/21 00:00 Intake Total 740 ml Output Total 885 ml Balance -145 ml Constitutional: AAO x 3, well-developed, well-nourished Respiratory: No accessory muscle use; other (fair bilat air entry, diminished at the bases) Cardiovascular: regular rate-rhythm, S1 and S2, systolic murmur (2/6 mid systolic murmur at the cardiac base) Gastrointestional: No tender; distended; No guarding, No rebound Extremities: No clubbing, No cyanosis, No significant edema Neurologic/Psychiatric: oriented x 3, other (moves all limbs) Skin: normal color, warm/dry Results/Procedures: Labs Laboratory Tests 11/27/21 05:23: White Blood Count 15.2H, Red Blood Count 3.61L, Hemoglobin 11.1L, Hematocrit 33L , Mean Corpuscular Volume 92, Mean Corpuscular Hemoglobin 31, Mean Corpuscular Hemoglobin Concent 33, Red Cell Distribution Width 13.5, Platelet Count 247, Mean Platelet Volume 9.9, Immature Granulocyte % (Auto) 1, Neutrophils (%) (Auto) 88H, Lymphocytes (%) (Auto) 5L, Monocytes (%) (Auto) 6, Eosinophils (%) (Auto) 0, Basophils (%) (Auto) 0, Neutrophils # (Auto) 13.4H, Lymphocytes # (Auto) 0.7L, Monocytes # (Auto) 0.9, Eosinophils # (Auto) 0.0, Basophils # (Auto) 0.0, Immature Granulocyte # (Auto) 0.1, Sodium Level 130L, Potassium Level 3.7, Chloride Level 100, Carbon Dioxide Level 21, Anion Gap 9, Blood Urea Nitrogen 20H, Creatinine 0.77, Estimat Glomerular Filtration Rate 86, BUN/Creatinine Ratio 26, Glucose Level 107H, Calcium Level 7.8L, Corrected Calcium 8.9, Total Bilirubin 1.9H, Aspartate Amino Transf (AST/SGOT) 42H, Alanine Aminotransferase (ALT/SGPT) 98H, Alkaline Phosphatase 250H, Total Protein 4.7L, Albumin 2.6L, Lipase 32, Procalcitonin 0.83H 11/27/21 08:45: Lactic Acid Level 1.19 Microbiology 11/22/21 MRSA Screen - Final, Complete MRSA not isolated Laboratory Tests 11/26/21 06:05 11/27/21 05:23 A/P: Assessment: Mild sinus node dysfunction - sinus rhythm with PACs vs wandering atrial pacemaker - occasional short runs of paroxysmal atrial tachycardia - beta-rolf initiated during this hosp, tolerating well Cardiac echo 11/22/21: LVEF 40 to 45%, left atrial dilatation, hypertrophy of the intra-atrial septum, PA pressure of 30 to 35 mmHg, mild mitral regurgitation. Influenza B Cholelithiasis - status post cholecystectomy on November 23, 2021 - post-op ileus, managed by Med and Surg svces Plan: Ileus appears to be improving Continue current cardiac regimen I again answered CV-related questions in detail DIONY TROY MD FACP FACC CCDS Nov 27, 2021 15:54
[2021-11-27] MEDS: ENOXAPARIN 40 MG/0.4 ML (LOVENOX) SYR SC SCH (16:19)
[2021-11-27 19:36] VITALS: BP 113/54
[2021-11-27] MEDS: MELATONIN 3 MG TABLET PO PRN (20:04)
[2021-11-27 23:05] VITALS: BP 103/61
[2021-11-28] MEDS: PIPERACILLIN SODIUM/TAZOBACTAM 4.5 GM in NS (IVPB) 100 ML IV SCH ×3 (02:44→19:02)
[2021-11-28] MEDS: NS IV 1000 ML 1,000 ML IV SCH ×2 (02:44→14:55)
[2021-11-28 03:47] VITALS: BP 111/58
[2021-11-28] MEDS: METOCLOPRAMIDE INJ 10 MG/2 ML (REGLAN) IVP SCH ×3 (06:04→16:24)
[2021-11-28 06:05] LABS: BASOPHILS % (AUTO) 0 % (0-10); EOSINOPHILS # (AUTO) 0.2 10^3/uL (0.0-0.3); EOSINOPHILS % (AUTO) 2 % (0-10); HEMATOCRIT 28 % (40-54); HEMOGLOBIN 9.5 g/dL (13.3-17.7); LYMPHOCYTES # (AUTO) 0.6 10^3/uL (1.0-4.0); LYMPHOCYTES % (AUTO) 7 % (12-44); MEAN CORPUSCULAR HEMOGLOBIN 31 pg (25-34); MEAN CORPUSCULAR HGB CONC 34 g/dL (32-36); MEAN CORPUSCULAR VOLUME 93 fL (80-99); MEAN PLATELET VOLUME 9.8 fL (9.0-12.2); MONOCYTES # (AUTO) 0.8 10^3/uL (0.0-1.0); MONOCYTES % (AUTO) 9 % (0-12); NEUTROPHILS # (AUTO) 6.8 10^3/uL (1.8-7.8); NEUTROPHILS % (AUTO) 81 % (42-75); PLATELET COUNT 199 10^3/uL (130-400); WHITE BLOOD COUNT 8.4 10^3/uL (4.3-11.0)
[2021-11-28 06:18] LABS: ALBUMIN 2.3 GM/DL (3.2-4.5); POTASSIUM 3.3 MMOL/L (3.6-5.0)
[2021-11-28 06:20] LABS: CALCIUM 7.4 MG/DL (8.5-10.1)
[2021-11-28 06:21] LABS: TOTAL PROTEIN 4.1 GM/DL (6.4-8.2)
[2021-11-28 06:23] LABS: BILIRUBIN,TOTAL 1.5 MG/DL (0.1-1.0)
[2021-11-28 06:24] LABS: CREATININE SERUM 0.72 MG/DL (0.60-1.30)
[2021-11-28 08:11] VITALS: BP 112/60
[2021-11-28] MEDS: DOCUSATE SODIUM 100 MG (COLACE) CAP PO SCH ×2 (08:53→20:52)
--- NOTE | 2021-11-28 08:57 | Cardiology Progress Note ---
Subjective Date Seen by Provider: Nov 28, 2021 Time Seen by Provider: 08:56 Subjective/Events-last exam Patient is laying down in bed, feeling better, no more nausea or diarrhea Review of Systems General: No Chills, No Night Sweats, No Fatigue, No Malaise, No Appetite, No Other HEENT: No Head Aches, No Visual Changes, No Eye Pain, No Ear Pain, No Dysphasia, No Sinus Congestion, No Post Nasal Drip, No Sore Throat, No Other Pulmonary: No Dyspnea, No Cough, No Pleuritic Chest Pain, No Other Cardiovascular: No: Chest Pain, Palpitations, Orthopnea, Paroxysmal Noc. Dyspnea, Edema, Lt Headedness, Other Focused Exam Lactate Level 11/27/21 08:45: Lactic Acid Level 1.19 Objective-Cardiology Exam Last Set of Vital Signs Vital Signs 11/27/21 11/28/21 07:47 08:11 Temp 36.0 Pulse 66 Resp 18 B/P (MAP) 112/60 (77) Pulse Ox 93 O2 Delivery Room Air O2 Flow Rate 0.00 I&O Intake and Output 11/28/21 00:00 Intake Total 1365 ml Output Total 470 ml Balance 895 ml Intake Oral 65 ml IV Total 1300 ml Drainage Total 470 ml # Voids 10 # Bowel Movements 4 General: Alert, Oriented X3, Cooperative HEENT: Atraumatic, PERRLA Neck: Supple, No JVD, No Thyromegaly Lungs: Clear to Auscultation, Normal Air Movement Heart: Normal S1, Normal S2, No Murmurs, Other (Irregular rhythm) Abdomen: Normal Bowel Sounds, Soft, No Tenderness, No Hepatosplenomegaly, No Masses Extremities: No Clubbing, No Cyanosis, No Edema, Normal Pulses, No Tenderness/Swelling Skin: No Rashes, No Breakdown, No Significant Lesion Neuro: Normal Gait, Normal Speech, Strength at 5/5 X4 Ext, Normal Tone, Sensation Intact Psych/Mental Status: Mental Status NL, Mood NL Results Lab Laboratory Tests 11/28/21 05:40 A/P-Cardiology Admission Diagnosis Paroxysmal atrial tachycardia Premature ventricular contractions Cholelithiasis Influenza B Assessment/Plan Irregular rhythm with frequent ventricular premature contractions, occasional atrial premature contractions, occasional short runs of paroxysmal atrial tachycardia. Suspicion of atrial fibrillation, had 1 telemetry strip suggestive of atrial fibrillation otherwise patient had artifact in sinus rhythm with first-degree AV block and frequent PVCs and few short runs of PAT's. Reporting that he had history of irregular heartbeat. Started on metoprolol and tolerating medication well. 2D echo on this admission showed ejection fraction 40 to 45%, left atrial dilatation, hypertrophy of the intra-atrial septum, PA pressure of 30 to 35 mmHg, mild mitral regurgitation. Influenza B, generalized weakness, feeling better today. Cholelithiasis, elevated liver enzymes, status post cholecystectomy on November 23, 2021. Patient had postoperative ileus, reporting improvement in his nausea vomiting and diarrhea. No further episodes were reported Managed by surgical team. Jaundice. ARIANA FALL MD Nov 28, 2021 08:57
[2021-11-28] MEDS: POTASSIUM CL 10MEQ/50ML IVPB 50 ML IV SCH ×3 (09:26→11:28)
[2021-11-28] MEDS: CATHETER FLUSH 10 ML SYR IV PRN (12:48)
--- NOTE | 2021-11-28 13:51 | Progress Note ---
Subjective Subjective/Events-last exam Afebrile, states he is feeling well. Denies pain. Focused Exam Lactate Level 11/27/21 08:45: Lactic Acid Level 1.19 Objective Exam Last Set of Vital Signs Vital Signs Date Time Temp Pulse Resp B/P (MAP) Pulse Ox O2 Delivery O2 Flow Rate FiO2 11/28/21 08:11 36.0 66 18 112/60 (77) 93 Room Air 11/27/21 07:47 0.00 Capillary Refill : Less Than 3 SecondsLess Than 3 Seconds I&O Intake and Output 11/28/21 00:00 Intake Total 1365 ml Output Total 470 ml Balance 895 ml Intake Oral 65 ml IV Total 1300 ml Drainage Total 470 ml # Voids 10 # Bowel Movements 4 General: Alert, No Acute Distress Lungs: Clear to Auscultation, Normal Air Movement Heart: Regular Rate, No Murmurs Abdomen: Normal Bowel Sounds, Soft, No Tenderness, Other (dressing in place with no drainage on bandage, drain with dark/black drainage in bulb) Extremities: Other (1+ edema to just above ankles) Neuro: Normal Speech Psych/Mental Status: Mental Status NL, Mood NL Results/Procedures Lab Laboratory Tests 11/28/21 05:40: White Blood Count 8.4, Red Blood Count 3.05L, Hemoglobin 9.5L, Hematocrit 28L, Mean Corpuscular Volume 93, Mean Corpuscular Hemoglobin 31, Mean Corpuscular Hemoglobin Concent 34, Red Cell Distribution Width 13.6, Platelet Count 199, Mean Platelet Volume 9.8, Immature Granulocyte % (Auto) 1, Neutrophils (%) (Auto) 81H, Lymphocytes (%) (Auto) 7L, Monocytes (%) (Auto) 9, Eosinophils (%) (Auto) 2, Basophils (%) (Auto) 0, Neutrophils # (Auto) 6.8, Lymphocytes # (Auto) 0.6L, Monocytes # (Auto) 0.8, Eosinophils # (Auto) 0.2, Basophils # (Auto) 0.0, Immature Granulocyte # (Auto) 0.1, Sodium Level 133L, Potassium Level 3.3L, Chloride Level 105, Carbon Dioxide Level 20L, Anion Gap 8, Blood Urea Nitrogen 22H, Creatinine 0.72, Estimat Glomerular Filtration Rate 87, BUN/Creatinine Ratio 31, Glucose Level 92, Calcium Level 7.4L, Corrected Calcium 8.8, Total Bilirubin 1.5H, Aspartate Amino Transf (AST/SGOT) 35H, Alanine Aminotransferase (ALT/SGPT) 64H, Alkaline Phosphatase 213H, Total Protein 4.1L, Albumin 2.3L, Lipase 66 Microbiology 11/22/21 MRSA Screen - Final, Complete MRSA not isolated Assessment/Plan Assessment/Plan (1) Cholelithiasis Status: Acute Assessment & Plan: s/p cholecystectomy, appreciate Surgery recommendations. Drain continues to have bilious appearing fluid, HIDA for follow up planned for today. Symptomatically doing well and currently LFTs trending down. Continued on zosyn. Qualifiers: Qualified Codes: K80.20 - Calculus of gallbladder without cholecystitis without obstruction (2) Pancreatitis, gallstone Status: Resolved (3) Hypertension Status: Chronic (4) Influenza B Status: Resolved Assessment & Plan: s/p Tamiflu treatment (5) Anemia Status: Acute Assessment & Plan: Post-op. Monitor. Qualifiers: (6) Jaundice Status: Acute Assessment & Plan: Bilirubin trending toward normal. (7) Thrombocytopenia Status: Resolved (8) Hypokalemia Status: Acute Assessment & Plan: Replace as needed and follow. (9) Ileus Status: Resolved Assessment & Plan: Postop. Positive BM and flatus today. (10) Paroxysmal atrial tachycardia Status: Acute Assessment & Plan: Appreciate Cardiology recommendations, on metoprolol. (11) DVT prophylaxis Status: Acute Assessment & Plan: Enoxaparin TOÑO ESCALONA MD Nov 28, 2021 13:51
--- NOTE | 2021-11-28 16:12 | Diagnostic Imaging Report ---
INDICATION: Status post cholecystectomy. TECHNIQUE: Patient was administered 5.4 mCi technetium 99m Choletec and imaging over the abdomen was performed. FINDINGS: There is activity throughout the liver. There is accumulation of activity at the gallbladder fossa, suggestive of a bile leak. Activity is identified within the tubing of the patient's drain. There is activity within the small bowel. IMPRESSION: Status post cholecystectomy with patent common bile duct. There is abnormal accumulation of activity in the gallbladder fossa as well as within the drain tubing, suggestive of a bile leak. Results were discussed with Dr. Collier prior to this dictation. Dictated by: Dictated on workstation # [id number]
[2021-11-28 16:21] VITALS: BP 135/64
--- NOTE | 2021-11-28 16:22 | Progress Note ---
Subjective Date Seen by a Provider: Nov 28, 2021 Time Seen by a Provider: 16:00 Subjective/Events-last exam doing ok. tolerating diet. having bowel fxn. tbil 1.5. HIDA showed small leak at gallbladder fossa. WBC normal. no fever/chills. Focused Exam Lactate Level 11/27/21 08:45: Lactic Acid Level 1.19 Objective Exam Vital Signs Date Time Temp Pulse Resp B/P (MAP) Pulse Ox O2 Delivery O2 Flow Rate FiO2 11/28/21 08:11 36.0 66 18 112/60 (77) 93 Room Air 11/28/21 08:00 Room Air 11/28/21 03:47 37.0 65 20 111/58 (75) 91 Room Air 11/27/21 23:05 36.6 68 20 103/61 (75) 92 Room Air 11/27/21 20:08 Room Air 11/27/21 19:36 36.1 70 18 113/54 (73) 92 Room Air I & O 11/28/21 07:00 Intake Total 2465 ml Output Total 300 ml Balance 2165 ml Capillary Refill : Less Than 3 SecondsLess Than 3 Seconds General Appearance: No Apparent Distress HEENT: PERRL/EOMI Neck: Full Range of Motion Respiratory: Chest Non Tender, Lungs Clear, Normal Breath Sounds Cardiovascular: Regular Rate, Rhythm Gastrointestinal: normal bowel sounds, non tender, soft Extremity: Normal Capillary Refill Neurologic/Psychiatric: Alert, Oriented x3 Skin: Normal Color Lymphatic: No Adenopathy Results Lab Laboratory Tests 11/28/21 05:40: White Blood Count 8.4, Red Blood Count 3.05L, Hemoglobin 9.5L, Hematocrit 28L, Mean Corpuscular Volume 93, Mean Corpuscular Hemoglobin 31, Mean Corpuscular Hemoglobin Concent 34, Red Cell Distribution Width 13.6, Platelet Count 199, Mean Platelet Volume 9.8, Immature Granulocyte % (Auto) 1, Neutrophils (%) (Auto) 81H, Lymphocytes (%) (Auto) 7L, Monocytes (%) (Auto) 9, Eosinophils (%) (Auto) 2, Basophils (%) (Auto) 0, Neutrophils # (Auto) 6.8, Lymphocytes # (Auto) 0.6L, Monocytes # (Auto) 0.8, Eosinophils # (Auto) 0.2, Basophils # (Auto) 0.0, Immature Granulocyte # (Auto) 0.1, Sodium Level 133L, Potassium Level 3.3L, Chloride Level 105, Carbon Dioxide Level 20L, Anion Gap 8, Blood Urea Nitrogen 22H, Creatinine 0.72, Estimat Glomerular Filtration Rate 87, BUN/Creatinine Ratio 31, Glucose Level 92, Calcium Level 7.4L, Corrected Calcium 8.8, Total Bilirubin 1.5H, Aspartate Amino Transf (AST/SGOT) 35H, Alanine Aminotransferase (ALT/SGPT) 64H, Alkaline Phosphatase 213H, Total Protein 4.1L, Albumin 2.3L, Lipase 66 Microbiology 11/22/21 MRSA Screen - Final, Complete MRSA not isolated Assessment/Plan Assessment/Plan Assess & Plan/Chief Complaint cholelithiasis and choledocholithiasis with influenza B s/p laparoscopic cholecystectomy. small leak gallbladder fossa on HIDA. will schedule for ERCP and stent. likely home after that. will keep CINTHYA drain in for 1 week then f/u in office. CHESTER DE LOS SANTOS MD Nov 28, 2021 16:22
[2021-11-28] MEDS: ENOXAPARIN 40 MG/0.4 ML (LOVENOX) SYR SC SCH (16:24)
[2021-11-29 00:08] VITALS: BP 120/62
[2021-11-29] MEDS: METOCLOPRAMIDE INJ 10 MG/2 ML (REGLAN) IVP SCH ×3 (00:40→11:04)
[2021-11-29] MEDS: PIPERACILLIN SODIUM/TAZOBACTAM 4.5 GM in NS (IVPB) 100 ML IV SCH ×2 (02:55→11:03)
[2021-11-29 06:41] LABS: BASOPHILS % (AUTO) 0 % (0-10); EOSINOPHILS # (AUTO) 0.2 10^3/uL (0.0-0.3); EOSINOPHILS % (AUTO) 2 % (0-10); HEMATOCRIT 32 % (40-54); HEMOGLOBIN 10.9 g/dL (13.3-17.7); LYMPHOCYTES % (AUTO) 8 % (12-44); MEAN CORPUSCULAR HEMOGLOBIN 32 pg (25-34); MEAN CORPUSCULAR HGB CONC 34 g/dL (32-36); MEAN CORPUSCULAR VOLUME 94 fL (80-99); MEAN PLATELET VOLUME 9.5 fL (9.0-12.2); MONOCYTES % (AUTO) 8 % (0-12); NEUTROPHILS # (AUTO) 9.5 10^3/uL (1.8-7.8); NEUTROPHILS % (AUTO) 81 % (42-75); PLATELET COUNT 283 10^3/uL (130-400); WHITE BLOOD COUNT 11.7 10^3/uL (4.3-11.0)
[2021-11-29 07:22] LABS: ALBUMIN 2.7 GM/DL (3.2-4.5); BILIRUBIN,TOTAL 1.6 MG/DL (0.1-1.0); CALCIUM 7.7 MG/DL (8.5-10.1); CREATININE SERUM 0.75 MG/DL (0.60-1.30); POTASSIUM 3.4 MMOL/L (3.6-5.0); TOTAL PROTEIN 4.8 GM/DL (6.4-8.2)
[2021-11-29] MEDS ORDERED: KCL 20 MEQ TAB (K-DUR) PO NR (07:45)
--- NOTE | 2021-11-29 08:31 | Cardiology Progress Note ---
Subjective Date Seen by Provider: Nov 29, 2021 Time Seen by Provider: 08:30 Subjective/Events-last exam Patient is sitting up in chair, eating breakfast. Denies any palpitations. Review of Systems General: No Chills, No Night Sweats, No Fatigue, No Malaise, No Appetite, No Other HEENT: No Head Aches, No Visual Changes, No Eye Pain, No Ear Pain, No Dysphasia, No Sinus Congestion, No Post Nasal Drip, No Sore Throat, No Other Pulmonary: No Dyspnea, No Cough, No Pleuritic Chest Pain, No Other Cardiovascular: No: Chest Pain, Palpitations, Orthopnea, Paroxysmal Noc. Dyspnea, Edema, Lt Headedness, Other Focused Exam Lactate Level 11/27/21 08:45: Lactic Acid Level 1.19 Objective-Cardiology Exam Last Set of Vital Signs Vital Signs 11/28/21 11/29/21 11/29/21 19:30 00:08 08:00 Temp 36.9 Pulse 67 Resp 16 B/P (MAP) 120/62 (81) Pulse Ox 95 O2 Delivery Room Air O2 Flow Rate 0.00 I&O Intake and Output 11/29/21 00:00 Intake Total 2320 ml Output Total 110 ml Balance 2210 ml Intake Oral 1070 ml IV Total 1250 ml Drainage Total 110 ml # Voids 10 # Bowel Movements 5 General: Alert, Oriented X3, Cooperative, No Acute Distress HEENT: Atraumatic, PERRLA Neck: Supple, No JVD, No Thyromegaly Lungs: Clear to Auscultation, Normal Air Movement Heart: Regular Rate, Normal S1, Normal S2, No Murmurs Abdomen: Normal Bowel Sounds, Soft, No Tenderness, Other (dressing in place with no drainage on bandage, drain with dark/black drainage in bulb) Extremities: No Clubbing, No Cyanosis, Other (1+ edema to just above ankles) Skin: No Rashes, No Breakdown, No Significant Lesion Neuro: Normal Speech Psych/Mental Status: Mental Status NL, Mood NL Results Lab Laboratory Tests 11/29/21 06:31 A/P-Cardiology Admission Diagnosis Paroxysmal atrial tachycardia Premature ventricular contractions Cholelithiasis Influenza B Assessment/Plan Irregular rhythm with frequent ventricular premature contractions, occasional atrial premature contractions, occasional short runs of paroxysmal atrial tachycardia. Suspicion of atrial fibrillation, had 1 telemetry strip suggestive of atrial fibrillation otherwise patient had artifact in sinus rhythm with first-degree AV block and frequent PVCs and few short runs of PAT's. Reporting that he had history of irregular heartbeat. Started on metoprolol and tolerating medication well. 2D echo on this admission showed ejection fraction 40 to 45%, left atrial dilatation, hypertrophy of the intra-atrial septum, PA pressure of 30 to 35 mmHg, mild mitral regurgitation. Influenza B, generalized weakness, feeling better today. Cholelithiasis, elevated liver enzymes, status post cholecystectomy on November 23, 2021. Patient had postoperative ileus, reporting improvement in his nausea vomiting and diarrhea. No further episodes were reported Small bile leak noted on HIDA scan, planning for ERCP and stent placement as outpatient per pt. Managed by surgical team. Jaundice. OK for discharge from cardiology standpoint. Supervisory-Addendum Brief Supervisory Addendum Participated in pt care: history, MDM, physical Personally performed: exam, history, MDM Care discussed with: BHUPINDER Results interpretation: Verified all documentation Notes: Patient was seen and evaluated with Danuta, examination performed, management plan was discussed, agree with the current scribed note, I made few changes to the note using Italic font Patient was seen at bedside, sitting comfortably Feeling better, still having the drain from the surgery Possible ERCP outpatient Heart rate is regular at this time. Recommend follow-up as an outpatient. DANUTA LE Nov 29, 2021 08:31 ARIANA FALL MD Nov 29, 2021 08:58
[2021-11-29] MEDS: DOCUSATE SODIUM 100 MG (COLACE) CAP PO SCH (08:56)
[2021-11-29] MEDS: NS IV 1000 ML 1,000 ML IV SCH (08:57)
[2021-11-29 08:58] VITALS: BP 122/60
[2021-11-29] MEDS ORDERED: MTP25TSR PO (11:18)
--- NOTE | 2021-11-29 11:32 | Discharge Summary ---
Discharge Summary Instructions for Patient Assessment/Instructions You should get a call from Dr. Kern's office today or tomorrow with a time for your procedure on Sunday. If you do not hear from Dr. Kern's office in the next 24 hours, please notify Dr. Collier's office. Physician to follow Patient: Robby Discharge Diet for Home: Regular Diet Hospital Course Date of Admission: Nov 19, 2021 at 15:42 Admission Diagnosis : Influenza B Severe weakness Gallstone induced pancreatitis Cholecystitis Jaundice Sclerae icterus Hypertension GERD Family Physician/Provider: Dominick Bustamante MD Date of Discharge: 11/29/21 Discharge Diagnosis: See problem list Hospital Course: Pt admitted and treated with oseltamivir for influenza, had cholecystectomy with improving LFTs and normalized lipase/amylase. He had post-op ileus which resolved, and he did have persistent drainage from his post-surgical drain that appeared bilious, so HIDA was done and did show a bile leak, but because his white count was improved, he was symptomatically well and tolerating oral and his drain remained in place, Dr. Collier reported that he discussed with Dr. Kern (GI) and had originally pursued transfer to [facility] for ERCP, but because of the preceding, Dr. Collier and Dr. Kern agreed that outpatient ERCP would be adequate, and plan was that patient would be contacted the day of or day after d/c with a time for outpatient ERCP later this week. He also was seen by Cardiology for irregular rhythm with frequent PVCs, occasional PAC and occasional short runs of paroxysmal atrial tachycardia. He was started on metoprolol and tolerated well, was continued on discharge. Pt was also educated on signs requiring urgent return to the hospital rather than waiting for scheduled procedure including fever, inability to keep liquids down, worsening yellow skin or eyes, abdominal pain. Labs and Pending Lab Test: Laboratory Tests 11/29/21 06:31: White Blood Count 11.7H, Red Blood Count 3.44L, Hemoglobin 10.9L, Hematocrit 32L , Mean Corpuscular Volume 94, Mean Corpuscular Hemoglobin 32, Mean Corpuscular Hemoglobin Concent 34, Red Cell Distribution Width 13.3, Platelet Count 283, Mean Platelet Volume 9.5, Immature Granulocyte % (Auto) 1, Neutrophils (%) (Auto) 81H, Lymphocytes (%) (Auto) 8L, Monocytes (%) (Auto) 8, Eosinophils (%) (Auto) 2, Basophils (%) (Auto) 0, Neutrophils # (Auto) 9.5H, Lymphocytes # (Auto) 1.0, Monocytes # (Auto) 1.0, Eosinophils # (Auto) 0.2, Basophils # (Auto) 0.0, Immature Granulocyte # (Auto) 0.1, Sodium Level 135, Potassium Level 3.4L, Chloride Level 108H, Carbon Dioxide Level 18L, Anion Gap 9, Blood Urea Nitrogen 18, Creatinine 0.75, Estimat Glomerular Filtration Rate 86, BUN/Creatinine Ratio 24, Glucose Level 84, Calcium Level 7.7L, Corrected Calcium 8.7, Total Bilirubin 1.6H, Aspartate Amino Transf (AST/SGOT) 38H, Alanine Aminotransferase (ALT/SGPT) 58H, Alkaline Phosphatase 270H, Total Protein 4.8L, Albumin 2.7L, Lipase 86H Microbiology 11/22/21 MRSA Screen - Final, Complete MRSA not isolated Home Meds Active Metoprolol Succinate 25 Mg Tab.er.24h 25 Mg PO DAILY Hydrocodone-Acetamin 7.5-325 (Hydrocodone/Acetaminophen) 1 Each Tablet 1 Each PO Q6H Reported Tylenol Extra Strength (Acetaminophen) 500 Mg Tablet 500 Mg PO Q8H PRN Multi-Vitamin Daily (Multivitamin) 1 Each Tablet 1 Each PO DAILY Calcium (Calcium Carbonate) 500 Mg Tablet 500 Mg PO DAILY Finasteride 5 Mg Tablet 5 Mg PO DAILY Gemfibrozil 600 Mg Tablet 600 Mg PO DAILY Consulations General Surgery Cardiology Patient Allergies: Coded Allergies: No Known Drug Allergies (Unverified , 11/19/21) Home Health Need/Face to Face Date of Face to Face: Nov 29, 2021 Clinical Findings: Other-list in note (post-op wound care and drain management) I have seen Pt [id number]: Yes Discharged To: Home Diagnosis/Conditions: See problem list Problems/Diagnosis/Condition: (1) Cholelithiasis (2) Pancreatitis, gallstone (3) Hypertension (4) Influenza B (5) Jaundice (6) Thrombocytopenia (7) Hypokalemia (8) Premature ventricular contractions (9) Paroxysmal atrial tachycardia Patient is Homebound due to: Muscle weakness Homebound Status Due to the above stated illness, injury or surgical procedure (medical c ondition or diagnosis) and associated clinical findings, the patient is homebound because of his/her inability to leave home except with aid of a supportive device and/or person AND leaving the home requires a considerable and taxing effort or is medically contraindicated. Pt req the following assistanc: Aid of another person Home Health Nursing Orders Home Health Services Order: Nursing Services, Physical Therapy-Evaluate & Treat Certify Stmt I certify that this patient is under my care and that I, a nurse practitioner or a physician; a hotel administrative assistant working with me, had a face to face encounter that - meets the physician face to face encounter requirements with this patient as dated. Discharge Physical Exam General: Alert TOÑO ESCALONA MD Nov 29, 2021 11:26
== END 2021-11-29 14:15 | disposition home health service (06) | DRG 417 ==
LOC: ER FS 10:45 → CSD 15:42 → 4TH 11-20 08:39
PROVIDERS: ADMIT Internal Medicine; ATTEND Family Medicine
PROC: 0FT44ZZ Resection of Gallbladder, Percutaneous Endoscopic Approach (ICD-10-PCS; principal; 2021-11-23 14:00)
DX: K80.00 Calculus of gallbladder with acute cholecystitis without obstruction (principal); K85.10 Biliary acute pancreatitis without necrosis or infection; K56.7 Ileus, unspecified; I47.1 Supraventricular tachycardia; K91.89 Other postprocedural complications and disorders of digestive system; J10.1 Influenza due to other identified influenza virus with other respiratory manifestations; K75.9 Inflammatory liver disease, unspecified; Z20.822 Contact with and (suspected) exposure to COVID-19; I48.91 Unspecified atrial fibrillation; I34.0 Nonrheumatic mitral (valve) insufficiency; I10 Essential (primary) hypertension; E78.00 Pure hypercholesterolemia, unspecified; H54.7 Unspecified visual loss; K21.9 Gastro-esophageal reflux disease without esophagitis; D64.9 Anemia, unspecified; D69.6 Thrombocytopenia, unspecified; E87.6 Hypokalemia; I49.5 Sick sinus syndrome; I49.3 Ventricular premature depolarization
CPT/HCPCS: 36415; 70450; 71045; 74019; 74177; 78226; 80053; 80202; 81000; 82947; 83605; 83690; 83735; 84145; 84484; 85007; 85025; 85027; 86141; 87081; 87636; 87804; 88304; 93005; 93041; 93306; 96361; 96374; Q9967

== ENCOUNTER 2021-12-06 06:29 | Emergency (ER) | payer MEDICARE ==
[~2021-12-06 06:29] MED LIST: ACET-2267 PO; CALC-823 PO; FINA5TAB6 PO; GEMF600T88 PO; HYDR-3817 PO; MTP25TSR PO; MULT-974 PO; OMG1KC PO
[2021-12-06 06:31] VITALS: BP 176/130
--- NOTE | 2021-12-06 07:20 | ED CPR ---
HPI-CPR General Stated Complaint: CODE BLUE History of Present Illness Date Seen by Provider: Dec 06, 2021 Time Seen by Provider: 06:31 Initial Comments 89 yr M who was 1 week s/p gallbladder surgery was brought in by EMS in code blue. EMS had arrived at pt's house in answer to a fall. Pt was in process of signing a refusal to be brought into the hospital, when he became unresponsive. Initial bradycardia in the field with administration of atropine by EMS, and then PEA and V-fib and EMS began CPR and intubated patient in the field, and continued CPR approximately for 10 minutes with 2 rounds of Epi, and 1 shock, prior to entering ER. Pt's verbalized full code status to EMS. Pt was Influenza B positive and had A-Fib and 1st degree AV block discovered around the time of gallbladder surgery. Allergies and Home Medications Allergies Coded Allergies: No Known Drug Allergies (Unverified , 11/19/21) Patient Home Medication List Home Medication List Reviewed: Yes Acetaminophen (Tylenol Extra Strength) 500 Mg Tablet, 500 MG PO Q8H PRN for PA IN-MILD (1-4), (Reported) Entered as Reported by: YAS ALBERTS on 11/21/21 1056 Calcium Carbonate (Calcium) 500 Mg Tablet, 500 MG PO DAILY, (Reported) Entered as Reported by: YAS ALBERTS on 11/21/21 1054 Finasteride (Finasteride) 5 Mg Tablet, 5 MG PO DAILY, (Reported) Entered as Reported by: YAS ALBERTS on 11/21/21 1054 Gemfibrozil (Gemfibrozil) 600 Mg Tablet, 600 MG PO DAILY, (Reported) Entered as Reported by: YAS ALBERTS on 11/21/21 1054 Hydrocodone/Acetaminophen (Hydrocodone-Acetamin 7.5-325) 1 Each Tablet, 1 EACH PO Q6H Prescribed by: CHESTER DE LOS SANTOS on 11/24/21 1451 Metoprolol Succinate (Metoprolol Succinate) 25 Mg Tab.er.24h, 25 MG PO DAILY Prescribed by: TOÑO ESCALONA on 11/29/21 1118 Multivitamin (Multi-Vitamin Daily) 1 Each Tablet, 1 EACH PO DAILY, (Reported) Entered as Reported by: YAS ALBERTS on 11/21/21 1055 Review of Systems Review of Systems Constitutional: see HPI Respiratory: See HPI Cardiovascular: Other (code blue) Gastrointestinal: See HPI Genitourinary: No Symptoms Reported Past Yijnvba-Sfgybd-Ybtztq Hx Immunizations Up To Date First/Initial COVID19 Vaccinat: FEBRUARY 18 Second COVID19 Vaccination Rod: MARCH 21 Past Medical History Currently Using CPAP: No Currently Using BIPAP: No High Cholesterol, Hypertension Arthritis Physical Exam Vital Signs Capillary Refill : Height, Weight, BMI Height: '" Weight: lbs. oz. kg; 19.56 BMI Method: General Appearance: Severe Distress HEENT: Other (Pupils fixed and dilated) Respiratory: Other (intubated) Cardiovascular: No Edema, Other (v-fib and asystole) Gastrointestinal: Other (surgical drain and wound dresings presentin upper abdomen) Neurologic/Psychiatric: Other (unresponsive and intubated) Skin: Other (pale and yellowish tinge to skin) Procedures/Interventions CPR: Arrival to ER at 06:31, Defibrillation: 360J , 1 in the field , and 5 rounds in the ER. Rhythm: Asystole Initial rhythm : PEA on arrival, and ongoing compressions with Isidro, and 2 rounds of Epi at 06:33 and 06:39, and then rhythm changed to V-Fib, with shock of 360J given at 06:42, then Amiodarone 300mg at 06:44, continued in V-Fib and shocked again at 06:46, 3rd dose of Epi 1mg at 06: 47, V-Fib with shock again at 06:49 with blood sugar check of 108, 4th dose of Epi at 06:50 when pt went into asystole, then V-Fib and Amiodarone 150mg at 06:51 with shock at 06:52, thereafter asystole with 2 more rounds of Epi. Rhythm alternating with V-Fib and asystole intermittently throughout the entire code. Absent pulses during all pulse checks. Pupils fixed and dilated. All rounds of shock given with 360J. Time of is 06:59. Progress/Results/Core Measures Results/Orders Lab Results Laboratory Tests Test 12/06/21 06:47 Range/Units Glucometer 108 70-110 MG/DL Progress Progress Note : Progress Note See procedure note. Time of 06:59 Critical Care Note Critical Care Start Time: 06:31 Stop Time: :59 Date of : Dec 06, 2021 Time of : 06:59 Departure Impression Primary Impression: Cardiopulmonary arrest Disposition: 20 (06:59 time of ) Condition: Departure-Patient Inst. Referrals: SILVESTRE MAZARIEGOS MD (PCP/Family) Primary Care Physician Copy Copies To 1: SILVESTRE MAZARIEGOS MD, SNEHA L MD Dec 06, 2021 07:20
== END 2021-12-06 06:59 | disposition expired ==
LOC: EDUNIT# 06:29 → ER FS 06:32
DX: I46.9 Cardiac arrest, cause unspecified (principal)
CPT/HCPCS: 31500; 82947